=== PATIENT | female | born 2005 | race Caucasian/White ===

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

== ENCOUNTER 2025-10-23 11:34 | Emergency (ER) | payer BC, SELFPAY ==
[2025-10-23 11:35] VITALS: BP 129/59; PULSE 156; RESP 16; TEMP 36.7; O2SAT 100; BMI 27.0
--- NOTE | 2025-10-23 12:07 | ED.VIS.GI ---
HPI HPI - GI History of Present Illness Chief Complaint: Nausea/Vomiting/Diarrhea Informant: patient and parent Abdominal Pain/Flank Pain Onset: Today and Yesterday Context: Gradual Onset Timing: Continuous Quality: Aching Location: Diffuse Current Severity: Mild Maximum Severity: Mild Worsened by: Nothing Relieved by: Nothing Nausea/Vomiting/Emesis GI Symptom: Positive for Nausea and Vomiting Onset: Today and Yesterday Severity: Moderate Diarrhea/Melena/Hematochezia GI Symptom: Positive for Diarrhea Onset: Today and Yesterday Stool Quality: Positive for Watery Severity: Moderate Associated Symptoms Associated Symptoms: Negative for Dysuria, Frequency, Hematuria or Urgency Narrative Narrative: Healthy 20-year-old female. No prior abdominal surgeries. Yesterday started getting nausea, vomiting diarrhea. No exposure. Diffuse abdominal discomfort not localize any specific area. No dysuria no fever. No melena. Last menstrual period was about 3 weeks ago. Prior similar symptoms: No Recent Illness/Hospitalization: No PFSH PFSH Medical History no medical history no medical history Home Medications ?Medication ?Instructions ?Recorded ?Last Taken ?Type ondansetron 4 mg disintegrating 4 mg PO Q6H PRN nausea and 10/23/25 Unknown Rx tablet vomiting #10 tabs Allergy/AdvReac Type Severity Reaction Status Date / Time diphenhydramine (From Allergy Other Verified 10/23/25 11:38 Benadryl) Social History Smoking Status: Never smoker ROS ROS ED ROS Narrative Nausea, vomiting, diarrhea and abdominal discomfort. Constitutional Constitutional ED: Denies chills or fever(s) ENT ENT ED: Denies ear pain Cardiovascular Cardiovascular: Denies chest pain Respiratory/Chest Respiratory/Chest: Denies cough or dyspnea Gastrointestinal Gastrointestinal: Reports abdominal pain, diarrhea, nausea and vomiting; Denies constipation or melena Genitourinary Genitourinary ED: Denies dysuria or hematuria Musculoskeletal Musculoskeletal: Denies arthralgias or back pain Integumentary Denies abscess Psychiatric Psychiatric: Denies anxiety Endocrine Endocrinology: Denies polydipsia Hematologic/Lymphatic Hematologic/Lymphatic: Denies easy bleeding Allergic/Immunologic Allergic/Immunologic ED: Denies mouth swelling, tongue swelling or urticaria EXAM Physical Exam Narrative Exam Narrative: Well-appearing 20-year-old female vital signs are stable and she is tachycardic 156. She does not look septic. Mildly dehydrated. H EENT exam pupils round react light. Mildly dry mucous membranes. Neck nontender no lymphadenopathy. Back nontender. Lungs clear to auscultation bilaterally. Heart tachycardic 140 no murmur. Chest wall ribs nontender. Abdomen soft nondistended normal bowel sounds without peritoneal signs. There is no localizing tenderness about the right upper or right lower quadrant unremarkable. No hernia no mass. No distention. Moving all 4 extremities. Nontender no edema normal strength. Neurologically she is awake alert. Answering questions following commands. Const Vital Signs: 10/23/25 11:35 Temperature 98.1 F Temperature Source Oral Pulse Rate 156 H Respiratory Rate 16 Blood Pressure 129/59 H Blood Pressure Mean 82 Pulse Ox 100 Oxygen Delivery Method Room Air MDM MDM MDM Narrative Medical decision making narrative: 20-year-old female suspect viral gastroenteritis. IV fluids. Toradol for discomfort. Screening labs. At this time I do not think this is appendicitis. No definitive bowel obstruction. I do not think she needs image. Repeat exam patient doing well around 1:50 PM. Clinically feels and looks much better she is smiling. Repeat abdominal exam benign no right lower quadrant tenderness. No right upper quadrant tenderness. She is nondistended. I went over her labs with her and her family. She does not need any imaging. Clinically I feel this is viral gastroenteritis. Exam and labs are consistent with that. She will be discharged home fluids and rest. Zofran as needed. Return if worse follow-up if not improving. They are comfortable with the plan. History & Record Review Discussion w/independent historian: Patient and Family Additional record(s) reviewed:: No prior records Lab Data Attestation: I reviewed the patient's lab results. Lab results narrative: CBC shows a white count 13.8 H&H of 16.8 and 47. Platelets 357. Electrolytes show a gap of 14. BUN and creatinine 20 and 0.8. Glucose 129. Liver enzymes are normal. Lipase of 26 and normal. Serum test negative. Labs: Laboratory Results - last 24 hr 10/23/25 12:26 WBC 13.8 H RBC 5.54 H Hgb 16.8 H Hct 47.8 H MCV 86.3 MCH 30.3 MCHC 35.1 RDW Std Deviation 38.8 RDW Coeff of Manuel 12.4 Plt Count 357 MPV 10.0 Immature Gran % (Auto) 0.400 Neut % (Auto) 95.2 H Lymph % (Auto) 1.7 L Parmer % (Auto) 2.6 Eos % (Auto) 0.0 Baso % (Auto) 0.1 Absolute Neuts (auto) 13.1 H Absolute Lymphs (auto) 0.24 L Nucleated RBC % 0 Sodium 139 Potassium 4.1 Chloride 104 Carbon Dioxide 21.5 Anion Gap 14 BUN 20 H Creatinine 0.84 Estim Creat Clear Calc 103.55 Est GFR (MDRD) Non-Af 101 BUN/Creatinine Ratio 23.7 H Glucose 129 H Calcium 9.8 Total Bilirubin 0.54 AST 22 ALT 15 Alkaline Phosphatase 73 Total Protein 8.3 Albumin 4.6 Globulin 3.7 Albumin/Globulin Ratio 1.2 Lipase 26 Serum , Qual NEGATIVE Discharge Plan Triage Chief Complaint: Nausea/Vomiting/Diarrhea ED Provider: Philippe Gallagher Dx/Rx/DC Orders Clinical Impression: Viral gastroenteritis, Nausea, vomiting and diarrhea, Acute dehydration Instructions: ED Gastroenteritis, Viral (Adult) Prescriptions: New ondansetron 4 mg tablet,disintegrating 4 mg PO Q6H PRN (Reason: nausea and vomiting) Qty: 10 0RF Primary Care Provider: Concepcion Mccullough Referrals: Concepicon Mccullough MD [Primary Care Provider, Pediatrics] - 3-5 Days if not improving Activity Restrictions/Additional Instructions: Plenty of fluids and rest. Water, 7-Up and Gatorade. Increase diet slowly as tolerated. Zofran as needed for nausea. You may swallow or let dissolve under your tongue. Follow-up with your primary care provider if not improving or return to the emergency department if feeling worse. Tylenol and Motrin for any pain. Print Language: Portuguese Disposition Disposition: Home, Self Care
[2025-10-23] MEDS: Ketorolac 30 MG/ML Syringe IV (12:23)
[2025-10-23] MEDS: 0.9% Normal Saline (1000mL) 1,000 ML 1000 ML IV (12:25)
--- OUTSIDE RECORDS SUMMARY | 2025-10-23 12:26 | XMS RPT_ITS | CCD ---
Author Organization [facility] Care Team Providers Care Assistant Manager [employer] Name Role Phone Sadia KAPOOR, Renard Primary Care Provider Renard Mccullough Primary Care Unavailable Cassie, Jax Attending Unavailable [place], Jax Referring Unavailable Sadia, Renard Primary Care Unavailable [place], Jax Attending Unavailable [place], Jax Referring Unavailable Cassie, Jax Attending Unavailable Cassie, Jax Referring Unavailable Sadia, Renard Primary Care Unavailable Renard Mccullough MD Primary Care Provider SADIA, RENARD Primary Care Unavailable ROX HAMMOND Attending Unavailable SADIA, RENARD Attending Unavailable SADIA, RENARD Primary Care Unavailable Allergies Allergy Classification Reported Allergen(s) Allergy Type Date of Onset Reaction(s) Facility (13 sources) Benadryl Allergy Decongestant; Translations: [BENADRYL ALLERGY DECONGESTANT] Drug Intolerance 5 Mental Status Change [facility] Work Phone: Medications Current Medications Medication Drug Class(es) Dates Sig (Normalized) Sig (Original) drospirenone / Ethinyl Estradiol (9 sources) Progestin, Estrogen Start: 11-25-2024 End: 10-27-2025 take 1 tablet by mouth once daily Drospirenone-Ethi nyl Estradiol (REBECA, 28,) 3-0.02 mg per tablet Indications: Acne vulgaris Take 1 tablet by mouth once daily. 84 tablet 3 11/25/2024 10/27/2025 Active Start: 11-20-2024 End: 11-25-2024 take 1 tablet by mouth once daily Drospirenone-Ethinyl Estradiol (REBECA, 28,) 3-0.02 mg per tablet Indications: Acne vulgaris , Encounter for BCP ( control pills) initial prescription Take 1 tablet by mouth once daily. 28 tablet 11/20/2024 11/25/2024 Discontinued Start: 11-20-2024 End: 10-22-2025 take 1 tablet by mouth once daily Drospirenone-Ethinyl Estradiol (REBECA, 28,) 3-0.02 mg per tablet Indications: Acne vulgaris , Encounter for BCP ( control pills) initial prescription Take 1 tablet by mouth once daily. 28 tablet 11/20/2024 10/22/2025 Active Start: 09-13-2023 End: 11-20-2024 take 1 tablet by mouth once daily Drospirenone-Ethinyl Estradiol (REBECA, 28,) 3-0.02 mg per tablet Indications: Acne vulgaris , Encounter for BCP ( control pills) initial prescription Take 1 tablet by mouth once daily. 84 tablet 3 09/13/2023 11/20/2024 Discontinued Start: 09-13-2023 End: 08-14-2024 take 1 tablet by mouth once daily Drospirenone-Ethinyl Estradiol (REBECA, 28,) 3-0.02 mg per tablet Indications: Acne vulgaris , Encounter for BCP ( control pills) initial prescription Take 1 tablet by mouth once daily. 84 tablet 3 09/13/2023 08/14/2024 Active Start: 05-02-2023 End: 04-02-2024 take 1 tablet by mouth once daily Drospirenone-Ethinyl Estradiol (REBECA, 28,) 3-0.02 mg per tablet Indications: Acne vulgaris , Encounter for BCP ( control pills) initial prescription Take 1 tablet by mouth once daily. 84 tablet 3 05/02/2023 04/02/2024 Active Comment on above: Take 1 tablet by riley once daily. metroNIDAZOLE 7.5 mg/ml topical cream (12 sources) Nitroimidazole Antimicrobial Start: 02-04-2024 End: 06-13-2024 metroNIDAZOLE 0.75 % cream Indications: Perioral dermatitis Apply to affected area once daily. 45 g 2 06/13/2024 Active Start: 02-04-2024 End: 02-04-2024 take 60 g by mouth once daily metroNIDAZOLE 1 % cream Indications: Perioral dermatitis Apply to affected area once daily. Use at rash around mouth and near nostrils 60 g 1 02/04/2024 02/04/2024 Discontinued Start: 08-04-2022 take 60 g by mouth once daily metroNIDAZOLE 1 % cream Indications: Perioral dermatitis Apply to affected area once daily. Use at rash around mouth and near nostrils 60 g 1 08/04/2022 Active Start: 03-25-2021 End: 05-30-2022 metroNIDAZOLE 0.75 % cream Indications: Perioral dermatitis Apply to affected area twice daily. 45 g 1 03/25/2021 05/30/2022 Discontinued Start: 03-25-2021 End: 05-30-2022 take 60 g by mouth once daily metroNIDAZOLE 1 % cream Indications: Perioral dermatitis Apply to affected area once daily. Use at rash around mouth and near nostrils 60 g 1 03/25/2021 05/30/2022 Discontinued Comment on above: Apply to affected ar ea once daily. Use at rash around mouth and near nostrils Apply to affected ar ea twice daily. Apply to affected ar ea once daily. predniSONE 20 mg oral tablet (1 source) Start: 05-30-20 End: 06-04-20 take 3 tablets by mouth once daily predniSONE (DELTASONE) 20 mg tablet Take 3 tablets by mouth once daily for 5 days. 15 tablet 0 05/30/2022 06/04/2022 Active Comment on above: Take 3 tablets by mo [facility] once daily for 5 days. spironolactone 100 mg oral tablet (8 sources) Aldosterone Antagonist take 1 tablet by mouth once daily spironolactone (ALDACTONE) 100 mg tablet Take 100 mg by mouth once daily. Active Comment on above: Take 100 mg by mouth once daily. Completed/Discontinued Medications Medication Drug Class(es) Dates Sig (Normalized) Sig (Original) Cetirizine (5 sources) Histamine-1 Receptor Antagonist End: 05-02-2023 CETIRIZINE HCL (ZYRTEC ORAL) Take by mouth once daily as needed. 0 05/02/2023 Discontinued CETIRIZINE HCL ( ZYRTEC ORAL) Take by mouth once daily as needed. 0 Active Comment on above: Take by mouth once d aily as needed. clindamycin 0.01 mg/mg topical gel (3 sources) Lincosamide Antibacterial clindamycin (CLEOCIN-T) 1 % gel Apply to affected area twice daily. 0 Active Comment on above: Apply to affected ar ea twice daily. ISOtretinoin 30 mg oral capsule (2 sources) Retinoid End: 06-13-20 24 take 1 capsule by mouth twice daily ISOtretinoin (CLARAVIS) 30 mg capsule Take 30 mg by mouth two times a day. 0 06/13/2024 Discontinued Comment on above: Take 30 mg by mouth two times a day. 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 Use inside nostrils 60 g 0 03/25/2021 05/30/2022 Discontinued Comment on above: Apply 1 application to affected area three times daily. Use inside nostrils tazarotene 0.45 mg/ml topical lotion (3 sources) Retinoid Start: 04-19-20 23 ARAZLO 0.045 % lotn Problems Active Problems Problem Classification Problem Date Documented Da te Episodic/Chronic Contraceptive and procreative management (1 source) Oral contraception; Translations: [Encounter for surveillance of contraceptive pills] 11-25-2024 Episodic Immunizations and screening for infectious disease (4 sources) Patient encounter status; Translations: [Encounter for immunization] Episodic Other bone disease and musculoskeletal deformities (12 sources) Adolescent idiopathic scoliosis; Translations: [Adolescent idiopathic scoliosis, site unspecified] Onset: 05-07-2018 05-07-2018 Chronic Other inflammatory condition of skin (15 sources) Perioral dermatitis; Translations: [Perioral dermatitis] Onset: 09-14-2016 09-14-2016 Chronic Other nervous system disorders (1 source) Hyperesthesia; Translations: [Hyperesthesia] Episodic Other skin disorders (1 source) Eruption; Translations: [Rash and other nonspecific skin eruption] Episodic Other skin disorders (4 sources) Acne vulgaris; Translations: [Acne vulgaris] Episodic Other skin disorders (1 source) Acne vulgaris; Translations: [Acne vulgaris] Onset: 05-23-2024 Episodic Other upper respiratory infections (2 sources) Sore throat symptom; Translations: [Acute pharyngitis, unspecified] 06-22-2023 Episodic Past or Other Problems Problem Classification Problem Date Documented Da te Episodic/Chronic Other acquired deformities (12 sources) Lumbar spondylolisthesis; Translations: [Spondylolisthesis , lumbar region] Onset: 05-16-2018 05-16-2018 Episodic Spondylosis; intervertebral disc disorders; other back problems (5 sources) Acute back pain with sciatica; Translations: [Lumbago with sciatica, right side] Onset: 06-26-2018 Resolved: 06-09-2022 06-26-2018 Episodic Sprains and strains (12 sources) Rupture of anterior cruciate ligament of left knee; Translations: [Sprain of anterior cruciate ligament of left knee, subsequent encounter] Onset: 06-09-2022 Episodic Results Test Name Value Interpretation Reference Range Facil ity CNOVon 11-25-2024 CNOV Office Visit (OBGYWM) ---- HAILEE GARCIA ([id number]) 5 F Date Time Provider Department 11/25/24 1:30 PM ROX HAMMOND OBPALWGeetha During your visit today, we recorded the following information about you: Blood pressure Weight Last Period 108/60 70.9 kg 11/19/24 Rox Hammond APRN.ADVERTISING SALES AGENT 11/25/2024 1:54 PM Signed This 19 year old female was started on BCPs and is here for follow-up. She no complaints. Menses are normal and regular. Denies abdominal pain, chest pain or headache. No pain or swelling in the legs. No other neurologic or pulmonary symptoms. Patient's last menstrual period was 11/19/2024. Menstruation / History: No intermenstrual bleeding, spotting or discharge. Interval HX: no change. Last 1 Encounter BP Readings: Date: BP: 06/13/2024 110/60 EXAMINATION: Not Done ASSESSMENT/PLAN: Doing well on current BCP ORDERS: Office Visit on 11/25/24 Drospirenone-Ethiny l Estradiol (Vandana QUILES,) 3-0.02 mg per tablet DIAGNOSIS: (Z30.41) Encounter for surveillance of contraceptive pills (primary encounter diagnosis) (L70.0) Acne vulgaris RTC: 1 year for annual exam Rox Hammond APRN.ROHIT Medical Decision Making: Problems: Low: Stable chronic illness Risk: Moderate: Drug management Medical Decision Making Level: 3 - Low Allergies As of Date: 11/25/2024 Noted Allergy Reaction BENADRYL ALLERGY DECONGESTANT 09/27/2015 1 - Mental Status Change Comments: hyperness, night terror Date Reviewed: 11/25/2024 Reviewed by: Tanisha Connell LPN - Fully Assessed Reason for Visit: Contraception [26] Primary Visit Diagnosis:Encounter for surveillance of contraceptive pills [Z30.41] Other Visit Diagnosis:Acne vulgaris [L70.0] Order(s):Drospireno ne-Ethinyl Estradiol (REBECA, 28,) 3-0.02 mg per tabletTake 1 tablet by mouth once daily.Disp: 84 tabletRfl: 3 Prescriptions as of 11/25/2024 - Drospirenone-Ethiny l Estradiol (REBECA 28,) 3-0.02 mg per tablet Take 1 tablet by mouth once daily. - metroNIDAZOLE 0.75 % cream Apply to affected area once daily. - spironolactone (ALDACTONE) 100 mg tablet Take 100 mg by mouth once daily. Problem List As Of Date 11/25/2024 Noted Resolved Perioral dermatitis [L71.0] 09/14/2016 Adolescent idiopathic scoliosis [M41.129] 05/07/2018 Spondylolisthesis at L4-L5 level [M43.16] 05/16/2018 Acute right-sided low back pain with right-side*06/26/20 18 06/09/2022 Left ACL tear [S83.512A] 06/09/2022 Prescriptions ordered this encounter Disp Refills Start End DROSPIRENONE 3 MG-ETHINYL ESTRADIOL * 84 t* 3 11/25/2024 10/27/2025 Route: ORAL Sig: Take 1 tablet by mouth once daily. Medications Discontinued During This Encounter Prescriptions - Drospirenone-Ethiny l Estradiol (REBECA, 28,) 3-0.02 mg per tablet (Discontinued) Take 1 tablet by mouth once daily. Encounter Status:Closed by ROX HAMMOND on 11/25/24 [facility] Office Visit (PEDSWS) ---- HAILEE GARCIA ([id number]) 5 F Date Time Provider Department 06/13/24 10:30 AM RENARD MCCULLOUGH During your visit today, we recorded the following information about you: Temperature Pulse Blood pressure Weight 97.2 degrees 88/minute 110/60 67.4 kg Last Period Head Circumference 06/10/24 163.2cm Renard Mccullough MD 06/13/2024 12:54 PM Signed WELL VISIT PEDIATRIC 18+ YRS OLD Hailee is a 18 year old who presents today for well exam. SUBJECTIVE CONCERNS: Vaccines HISTORY ACTIVE PROBLEM LIST Left Acl Tear - 06/09/2022 Comment: S/p surgical repair fall '21 Spondylolisthesis At L4-L5 Level - 05/16/2018 Adolescent Idiopathic Scoliosis - 05/07/2018 Comment: Perioral Dermatitis - 09/14/2016 PAST MEDICAL HISTORY 07/20/2010: PMH - PAST MEDICAL HISTORY OF Comment: normal color vision 07/2021: Torn ACL-left PAST SURGICAL HISTORY 08/2021: PAST SURGICAL HISTORY OF Comment: Repair torn ACL-left ALLERGIES Allergen Reactions Benadryl Allergy De* Mental Status Change hyperness, night terror Medications: metroNIDAZOLE 0.75 % cream Apply to affected area once daily. Drospirenone-Ethiny l Estradiol (REBECA, Vandana,) 3-0.02 mg per tablet Take 1 tablet by mouth once daily. spironolactone (ALDACTONE) 100 mg tablet Take 100 mg by mouth once daily. ISOtretinoin (CLARAVIS) 30 mg capsule Take 30 mg by mouth two times a day. (Patient not taking: Reported on 06/13/2024) FAMILY HISTORY Problem Relation Age of Onset Diabetes Maternal Grandmother Cancer Other paternal side Social History Social History Narrative Not on file Smoking Exposure: Do you spend a significant amount of time with anyone who smokes? No School: Entering College. No academic or school related concerns No behavioral concerns Any concerns regarding peer interactions? No Recreational Screen Time totaling more than 2 hours of screen time per day. Physical Activity: more than 1 hour of physical activity per day Fainting, dizziness, significant shortness of breath or chest pain with sports or exercise: No History of concussion in the last year: No Safety: 06/11/2023 Pediatric SDOH - Response to gun questions Are there any guns kept in or around your home or where your child spends time? No Reviewed seat belts, bike helmets, and smoke detectors Diet: -Diet is well balanced and appropriate for age -Fruits are eaten with most meals -Vegetables are not eaten routinely -Drinks water daily Elimination: no concerns, normal size and consistency Dental: dental care current Sleep: -no sleep concerns Vision: Wears contact lenses and Vision screening completed by eye doctor Hearing: No hearing concerns Growth: No growth concerns Gynecological history: LMP: 06/10/2024 Cycles are regular and last 4 days. Dysmenorrhea: none Heavy periods: no Screening tools reviewed and discussed with patient/family-PHQ- 9 and Social Determinants of Health. Please see Patient Entered Data. SDOH: Food Insecurity: Patient Declined (06/13/2024) Hunger Vital Sign Worried About Running Out of Food in the Last Year: Patient declined Ran Out of Food in the Last Year: Patient declined Financial Resource Strain: Patient Declined (06/13/2024) Overall Financial Resource Strain (CARDIA) Difficulty of Paying Living Expenses: Patient declined Transportation Needs: No Transportation Needs (06/13/2024) PRAPARE - Transportation Lack of Transportation (Medical): No Lack of Transportation (Non-Medical): No Housing Stability: Low Risk (06/13/2024) Housing Stability Vital Sign Unable to Pay for Housing in the Last Year: No Number of Places Lived in the Last Year: 1 Unstable Housing in the Last Year: No Discussed SDOH results with patient/family. SDOH needs identified: no concerns identified OBJECTIVE Physical Exam: BP 110/60 Pulse 88 Temp 36.2 ?C (97.2 ?F) (Temporal Artery) Wt 67.4 kg (148 lb 9.6 oz) LMP 06/10/2024 (Exact Date) HC 163.2 cm Blood pressure %denzel are not available for patients who are 18 years or older. Blood pressure %denzel are not available for patients who are 18 years or older. No height and weight on file for this encounter. Last BMI: Wt: 61.3 kg (135 lb 3.2 oz) (69%, Z= 0.48)* BMI: 22.94 kg/(m2) Last 4 Encounter Wt Readings: Date: Wt: 06/13/2024 67.4 kg (148 lb 9.6 oz) (81%, Z= 0.88)* 09/13/2023 61.3 kg (135 lb 3.2 oz) (69%, Z= 0.48)* 06/22/2023 60.4 kg (133 lb 3.2 oz) (67%, Z= 0.43)* 06/11/2023 61.6 kg (135 lb 12.8 oz) (70%, Z= 0.53)* Last 4 Encounter Ht Readings: Date: Ht: 06/11/2023 163.5 cm (5' 4.37) (52%, Z= 0.06)* 06/09/2022 163.6 cm (5' 4.41) (54%, Z= 0.11)* 06/08/2021 163.5 cm (5' 4.37) (56%, Z= 0.15)* 05/19/2020 162.6 cm (5' 4) (55%, Z= 0.13)* General: Well developed, No acute distress Head: normocephalic Eyes: conjunctivae/cornea s clear Ears (more content not included)... Normal [facility] SCREENING TEST OF VISUAL ACU ITY, QUANTon 06-13-2024 Interpretation and review of laboratory results Normal [facility] SCREENING incomlpete Incomplete - Complete [facility] Patient currently sees ophthalmology for vision concerns. Performed by Phu Sheridan RN [facility] ,Urineon 05-06-2024 Beta HCG ( test) Ql (U) Negative Normal [facility] Comment on above: Result Comment: Very dilute urine specimens, as indicated by a low specific gravity, may not contain exhibit display representative levels of hCG. If is still suspected, a first morning urine specimen should be collected 48 hours later and tested. Performed By: #### L 400.0620 #### [facility] [address] [place], [address] Laboratory - Chemistry and C hemistry - challengeOrdered By: Jax Matthews on 10-10-2023 HCG ( test) Ql (U) Negative [facility] Comment on above: Very dilute urine sp ecimens, as indicated by a low specificgravity, may not contain exhibit display representative levels of hCG. If is still suspected, a first morning urinespecimen should be collected 48 hours later and tested. ,Urineon 10-10-2023 Beta HCG ( test) Ql (U) Negative Normal [facility] Comment on above: Result Comment: Very dilute urine specimens, as indicated by a low specific gravity, may not contain exhibit display representative levels of hCG. If is still suspected, a first morning urine specimen should be collected 48 hours later and tested. Performed By: #### L 400.7600 #### [facility] [address] [place], [place], [id number] LDL, Directon 06-24-2023 Cholesterol in LDL [Mass/Vol] 93 mg/dL Normal 0-109 [facility] Comment on above: Order Comment: V Result Comment: Perf ormed at: - [facility] [address] [id number] Telecommunications Analyst: Star Greenwood PhD, Phone: [phone] Performed By: #### L 500.4100, L501.4100, L3300.4490, L501.4405 #### [facility] [address] [place], [place], [id number] COMMENT TNP Normal . [facility] Comment on above: Order Comment: V Performed By: #### L 500.4100, L501.4100, L3300.4490, L501.4405 #### [facility] [address] [place], [place], [id number] AST(SGOT)on 06-22-2023 AST [Catalytic activity/Vol] 21 U/L Normal 15-37 [facility] Comment on above: Performed By: #### L 500.4100, L501.4100, L3300.4490, L501.4405 #### [facility] [address] [place], [address] Alanine Aminotransferas (SGP T)on 06-22-2023 ALT [Catalytic activity/Vol] 26 U/L Normal [facility] Comment on above: Performed By: #### L 500.4100, L501.4100, L3300.4490, L501.4405 #### [facility] [address] [place], [place], [address] Basophil percentageOrdered B y: Jax Matthews on 06-22-2023 Cholesterol [Mass/Vol] 177 mg/dL <200 [facility] Comment on above: <200 mg/dL Desirable 200-240 mg/dL Borderline >240 mg/dL High Risk Triglyceride [Mass/Vol] 64 mg/dL <199 [facility] Comment on above: The drugs N-Acetylcy steine and Metamizole may falsely depress this assay.Serum Triglycerides Reference Interval Normal <150 mg/dL Borderline high 150 - 199 mg/dL High 200 - 499 mg/dL Very High > or = 500 mg/dL Cholesterol in LDL Direct as say [Mass/Vol]Ordered By: Jax Matthews on 06-22-2023 Cholesterol in LDL [Mass/Vol] 93 mg/dL 0-109 [facility] Comment on above: Performed at: [place] [id number] Director: Star Greenwood PhD, Phone: [phone] Laboratory - Chemistry and C hemistry - challengeOrdered By: Jax Matthews on 06-22-2023 ALT [Catalytic activity/Vol] 26 U/L [facility] - Miscellaneous t estsOrdered By: Jax Matthews on 06-22-2023 Service comment (Unsp spec) [Interp] TNP [facility] Comment on above: Test not performed Lipid Profileon 06-22-2023 Cholesterol [Mass/Vol] 177 mg/dL Normal 200 [facility] Comment on above: Result Comment: <200 mg/dL Desirable 200-240 mg/dL Borderline >240 mg/dL High Risk Performed By: #### L 500.4100, L501.4100, L3300.4490, L501.4405 #### [facility] [address] [place], [address] Cholesterol in HDL [Mass/Vol] 90 mg/dL Normal [facility] Comment on above: Result Comment: The drugs N-Acetylcysteine and Metamizole may falsely depress this assay. Reference Range HDL <40 mg/dL Low HDL Cholesterol HDL >or= 60 mg/dL High HDL Cholesterol Performed By: #### L 500.4100, L501.4100, L3300.4490, L501.4405 #### [facility] [address] [place], [address] Cholesterol in LDL [Mass/Vol] 74 mg/dL Normal 0-130 [facility] Comment on above: Performed By: #### L 500.4100, L501.4100, L3300.4490, L501.4405 #### [facility] [address] [place], [address] Cholesterol in VLDL [Mass/Vol] 13 mg/dL Normal 5-40 [facility] Comment on above: Performed By: #### L 500.4100, L501.4100, L3300.4490, L501.4405 #### [facility] [address] [place], [address] Triglyceride [Mass/Vol] 64 mg/dL Normal [facility] Comment on above: Result Comment: The drugs N-Acetylcysteine and Metamizole may falsely depress this assay. Serum Triglycerides Reference Interval Normal <150 mg/dL Borderline high 150 - 199 mg/dL High 200 - 499 mg/dL Very High > or = 500 mg/dL Performed By: #### L 500.4100, L501.4100, L3300.4490, L501.4405 #### [facility] [address] [place], [address] STREP A MOLECULAR (POC)on Procedural Control Valid [facility] Strep A (POCT) Negative Negative [facility] Serum or plasma cholesterol in HDL measurement (mass/volume)Ordered By: Jax Matthews on 06-22-2023 Cholesterol in HDL [Mass/Vol] 90 mg/dL >40 [facility] Comment on above: The drugs N-Acetylcy steine and Metamizole may falsely depress this assay. Reference Range HDL <40 mg/dL Low HDL Cholesterol HDL >or= 60 mg/dL High HDL Cholesterol Serum or plasma cholesterol in VLDL measurement (mass/volume)Ordered By: Jax Matthews on 06-22-2023 Cholesterol in VLDL [Mass/Vol] 13 mg/dL 5-40 [facility] Serum or plasma low density lipoprotein (LDL) cholesterol measurement (mass/volume)Ordered By: Jax Matthews on 06-22-2023 Cholesterol in LDL [Mass/Vol] 74 mg/dL 0-130 [facility] Thin prep Papanicolaou smear with manual screeningOrdered By: Jax Matthews on 06-22-2023 Thin prep Papanicolaou smear with manual screening 21 U/L 15-37 [facility] STREP A MOLECULAR (POC)on Procedural Control Valid [facility] Strep A (POCT) Negative Negative [facility] Vital Signs Date Time Vital Sign Value Performing Clinician Facility 11-25-2024 13:32-0500 Body weight 70.94 kg Rox [place] TRANSPORTATION CONSULTANT.ADVERTISING SALES AGENT Work Phone: [facility] 11-25-2024 13:32-0500 Diastolic blood pressure 60 mm[Hg] Rox Stephany TRANSPORTATION CONSULTANT.ADVERTISING SALES AGENT Work Phone: [facility] 11-25-2024 13:32-0500 Systolic blood pressure 108 mm[Hg] Rox Stephany TRANSPORTATION CONSULTANT.ADVERTISING SALES AGENT Work Phone: [facility] 06-13-2024 10:38-0400 Body temperature 97.2 [degF] Renard Mccullough MD Work Phone: [facility] 06-13-2024 10:38-0400 Body weight 67.41 kg Renard Mccullough MD Work Phone: [facility] 06-13-2024 10:38-0400 Diastolic blood pressure 60 mm[Hg] Renard Mccullough MD Work Phone: [facility] 06-13-2024 10:38-0400 Head Occipital-frontal circumference 163.2 cm Renard Mccullough MD Work Phone: [facility] 06-13-2024 10:38-0400 Heart rate 88 /min Renard Mccullough MD Work Phone: [facility] 06-13-2024 10:38-0400 Systolic blood pressure 110 mm[Hg] Renard Mccullough MD Work Phone: [facility] 06-22-2023 12:48-0400 Body temperature 97.81 [degF] Subhash Stephens TRANSPORTATION CONSULTANT.ADVERTISING SALES AGENT Work Phone: [facility] 06-22-2023 12:48-0400 Body weight 60.42 kg Subhash Stephens TRANSPORTATION CONSULTANT.ADVERTISING SALES AGENT Work Phone: [facility] 06-22-2023 12:48-0400 Diastolic blood pressure 88 mm[Hg] Subhash Stephens TRANSPORTATION CONSULTANT.ADVERTISING SALES AGENT Work Phone: [facility] 06-22-2023 12:48-0400 Heart rate 95 /min Subhash Stephens TRANSPORTATION CONSULTANT.ADVERTISING SALES AGENT Work Phone: [facility] 06-22-2023 12:48-0400 Respiratory rate 21 /min Subhash Stephens TRANSPORTATION CONSULTANT.ADVERTISING SALES AGENT Work Phone: [facility] 06-22-2023 12:48-0400 SaO2% (BldA) [Mass fraction] 99 % Subhash Stephens TRANSPORTATION CONSULTANT.ADVERTISING SALES AGENT Work Phone: [facility] 06-22-2023 12:48-0400 Systolic blood pressure 120 mm[Hg] Subhash Stephens TRANSPORTATION CONSULTANT.ADVERTISING SALES AGENT Work Phone: [facility] 06-11-2023 13:36-0400 Body height 163.5 cm Renard Mccullough MD Work Phone: [facility] 06-11-2023 13:36-0400 Body mass index (BMI) [Percentile] Per age and sex 69.3 % Renard Mccullough MD Work Phone: [facility] 06-11-2023 13:36-0400 Body temperature 98.71 [degF] Renard Mccullough MD Work Phone: [facility] 06-11-2023 13:36-0400 Body weight 61.6 kg Renard Mccullough MD Work Phone: [facility] 06-11-2023 13:36-0400 Diastolic blood pressure 70 mm[Hg] Renard Mccullough MD Work Phone: [facility] 06-11-2023 13:36-0400 Heart rate 96 /min Renard Mccullough MD Work Phone: [facility] 06-11-2023 13:36-0400 Respiratory rate 20 /min Renard Mccullough MD Work Phone: [facility] 06-11-2023 13:36-0400 Systolic blood pressure 118 mm[Hg] Renard Mccullough MD Work Phone: [facility] 05-02-2023 15:21-0400 Body weight 60.96 kg Nyasia Castaneda APRN.ADVERTISING SALES AGENT Work Phone: [facility] 05-02-2023 15:21-0400 Diastolic blood pressure 72 mm[Hg] Nyasia Castaneda APRN.ADVERTISING SALES AGENT Work Phone: [facility] 05-02-2023 15:21-0400 Systolic blood pressure 110 mm[Hg] Nyasia Castaneda APRN.ADVERTISING SALES AGENT Work Phone: [facility] 06-09-2022 08:43-0400 Body height 163.6 cm Renard Mccullough MD Work Phone: [facility] 06-09-2022 08:43-0400 Body mass index (BMI) [Percentile] Per age and sex 70.01 % Renard Mccullough MD Work Phone: [facility] 06-09-2022 08:43-0400 Body temperature 98.2 [degF] Renard Mccullough MD Work Phone: [facility] 06-09-2022 08:43-0400 Body weight 60.78 kg Renard Mccullough MD Work Phone: [facility] 06-09-2022 08:43-0400 Diastolic blood pressure 76 mm[Hg] Renard Mccullough MD Work Phone: [facility] 06-09-2022 08:43-0400 Heart rate 104 /min Renard Mccullough MD Work Phone: [facility] 06-09-2022 08:43-0400 Respiratory rate 20 /min Renard Mccullough MD Work Phone: [facility] 06-09-2022 08:43-0400 Systolic blood pressure 116 mm[Hg] Renard Mccullough MD Work Phone: [facility] 05-30-2022 16:36-0400 Body temperature 98.49 [degF] Kirsten Ely PA-C Work Phone: [facility] 05-30-2022 16:36-0400 Body weight 61.92 kg Kirsten Ely PA-C Work Phone: [facility] 05-30-2022 16:36-0400 Heart rate 76 /min Kirsten Ely PA-C Work Phone: [facility] 05-30-2022 16:36-0400 Respiratory rate 16 /min Kirsten Ely PA-C Work Phone: [facility] Encounters Encounter Date Encounter Type Care Provider Facility Start: 11-25-2024 End: 11-25-2024 ambulatory RENARD MCCULLOUGH Facility:[facility] Start: 11-25-2024 End: 11-25-2024 Patient encounter procedure Rox Hammond APRN.CNP Work Phone: OB/Gynecology Comment on above: Encounter for survei llance of contraceptive pills (Primary Dx); Acne vulgaris Start: 11-20-2024 End: 11-20-2024 Refill Rox [place] TRANSPORTATION CONSULTANT.ADVERTISING SALES AGENT Work Phone: OB/Gynecology Comment on above: Refill Request Start: 09-28-2024 End: 09-29-2024 Refill Rox Stephany TRANSPORTATION CONSULTANT.ADVERTISING SALES AGENT Work Phone: OB/Gynecology Comment on above: Refill Request Start: 06-13-2024 End: 06-13-2024 ambulatory RENARD SADIA Facility:[facility] Start: 06-13-2024 Encounter for routin e child health examination without abnormal findings RENARD MCCULLOUGH [facility] Start: 06-13-2024 End: 06-13-2024 Patient encounter procedure Renard Mccullough MD Work Phone: [facility] Comment on above: Encounter for routin e child health examination w/o abnormal findings (Primary Dx); Perioral dermatitis Start: 06-13-2024 End: 06-13-2024 Patient encounter status Renard Mccullough MD Work Phone: [facility] Start: 05-06-2024 End: 05-06-2024 ambulatory Jax Cassie Facility:[facility] Start: 02-04-2024 Refill Michael Rojo MD Work Phone: [facility] [place] [facility] Comment on above: Med Change Request Start: 10-10-2023 End: 10-10-2023 ambulatory [facility] Work Phone: Start: 10-10-2023 End: 10-10-2023 Patient encounter procedure [facility] Work Phone: Start: 10-10-2023 End: 10-10-2023 ambulatory [facility] Facility:[facility] Start: 06-22-2023 End: 06-22-2023 ambulatory [facility] Work Phone: Start: 06-22-2023 End: 06-22-2023 Patient encounter procedure [facility] Work Phone: Start: 06-22-2023 End: 06-22-2023 Patient encounter procedure Subhash Stephens TRANSPORTATION CONSULTANT.ADVERTISING SALES AGENT Work Phone: [facility] Comment on above: URI, acute (Primary Dx); Sore throat Start: 06-22-2023 End: 06-22-2023 ambulatory Renard Mccullough Facility:[facility] Start: 06-11-2023 End: 06-11-2023 Patient encounter procedure Renard Mccullough MD Work Phone: [facility] Comment on above: Encounter for routin e child health examination without abnormal findings (Primary Dx) Start: 06-11-2023 End: 06-11-2023 Patient encounter status Renard Mccullough MD Work Phone: [facility] Work Phone: Start: 05-02-2023 End: 05-02-2023 Patient encounter procedure Nyasia Castaneda APRN.ADVERTISING SALES AGENT Work Phone: OB/Gynecology Comment on above: Acne vulgaris (Prima ry Dx); Encounter for BCP ( control pills) initial prescription Start: 08-03-2022 Refill Renard weaver MD Work Phone: [facility] Comment on above: Refill Request Start: 07-25-2022 ambulatory Renard weaver MD Work Phone: [facility] Comment on above: Recommended sunscree n from 06/09/22 visit Start: 06-09-2022 End: 06-09-2022 Patient encounter procedure Renard Mccullough MD Work Phone: [facility] Comment on above: Encounter for routin e child health examination without abnormal findings (Primary Dx); Encounter for immunization; Rupture of anterior cruciate ligament of left knee, subsequent encounter Start: 06-09-2022 End: 06-09-2022 Patient encounter status Renard Mccullough MD Work Phone: [facility] Start: 05-30-2022 End: 05-30-2022 Patient encounter procedure Kirsten Ely PA-C Work Phone: [facility] Comment on above: Rash and nonspecific skin eruption (Primary Dx) Procedures Date Procedure Procedure Detail Performing Clinician Start: 06-13-2024 Screening test visua l acuity quantitative bilat Renard Mccullough MD Work Phone: Start: 06-13-2024 Adult depression scr eening assessment Rox Hammond TRANSPORTATION CONSULTANT.ADVERTISING SALES AGENT Work Phone: Start: 06-22-2023 STREP A MOLECULAR (POC) Subhash Stephens TRANSPORTATION CONSULTANT.ADVERTISING SALES AGENT Work Phone: Start: 06-11-2023 Adult depression scr eening assessment Renard Mccullough MD Work Phone: Start: 06-09-2022 Menacwy-tt conj vacc serogroups acwy for im use Renard Mccullough MD Work Phone: Start: 06-09-2022 Adult depression scr eening assessment Renard Mccullough MD Work Phone: Start: 05-30-2022 STREP A MOLECULAR (POC) Kirsten Ely PA-C Work Phone: Start: 06-08-2021 Adult depression scr eening assessment Kirsten Ely PA-C Work Phone: Plan of Treatment Date Care Activity Detail Author Start: 05-02-2028 Urine microalbumin profile [facility] Start: 11-30-2025 End: 11-30-2025 Patient encounter procedure 11/30/2025 11:30 AM EST Office Visit OB/Gynecology [address] [place] [address] Rox Hammond APRN.ADVERTISING SALES AGENT [address] [place] [address] Annual OB/Gynecology Comment on above: Annual Start: 06-13-2025 Anxiety Screening Anxiety Screening [facility] Start: 06-13-2025 Depression Screening Depression Scre ening [facility] Start: 11-25-2024 End: 11-25-2024 Patient encounter procedure 11/25/2024 1:30 PM EST Office Visit OB/Gynecology [address] [place] [address] Rox Hammond APRN.ADVERTISING SALES AGENT [address] [place] [address] refill ocp OB/Gynecology Comment on above: refill ocp Start: 07-13-2024 Covid-19 Vaccine ( season) Covid-19 Vaccine ( season) [facility] Start: 07-13-2024 Influenza vaccination Influenza Vacc ine (#1) [facility] Start: 06-11-2024 Adult depression screening assessment DEPRESSION SCREENING [facility] Start: 11-12-2023 Depression Assessment Depression Ass essment [facility] Start: 07-13-2023 Covid-19 Vaccine ( season) Covid-19 Vaccine () [facility] Start: 07-13-[address] [facility] Start: 2023 Anxiety Screening Anxiety Screening [facility] Start: 2023 Depression Screening Depression Scre ening [facility] Start: 2023 GC (Gonorrhea) Scree dale () GC (Gonorrhea) Screening () [facility] Start: 2023 Hepatitis C screening Hepatitis C Sc reening [facility] Start: 2023 HIV screening HIV Screening [facility] Start: 2023 Screening for Chlamy piper trachomatis Chlamydia Screening () [facility] Start: 06-09-2023 Adult depression screening assessment DEPRESSION SCREENING [facility] Start: 07-13-2022 Influenza vaccination INFLUENZA (#1) [facility] Start: 06-08-2022 Adult depression screening assessment DEPRESSION SCREENING [facility] Start: 2021 Meningococcal B Vacc ine: Consider Based On Risk (1 of 2 - Patient Seeks Protection) Meningococcal B Vaccine: Consider Based On Risk (1 of 2 - Patient Seeks Protection) [facility] Start: 2021 MENINGOCOCCAL B: Con rubber press tender based on risk (1 of 2 - Patient Seeks Protection) MENINGOCOCCAL B: Consider based on risk (1 of 2 - Patient Seeks Protection) [facility] Start: 2021 MENINGOCOCCAL CONJUG ATE (2 - 2-dose series) MENINGOCOCCAL CONJUGATE (2 - 2-dose series) [facility] Start: 2020 CHLAMYDIA SCREENING (<18) CHLAMYDIA SCREENING (<18) [facility] Start: 2020 GC (GONORRHEA) SCREE DALE (<18) GC (GONORRHEA) SCREENING (<18) [facility] Start: 2019 PEDS TO ADULT TRANSI TION ANNUAL ASSESSMENT PEDS TO ADULT TRANSITION ANNUAL ASSESSMENT [facility] Start: 2015 MENINGOCOCCAL B: Con rubber press tender based on risk (1 of 2 - Risk Bexsero 2-dose series) MENINGOCOCCAL B: Consider based on risk (1 of 2 - Risk Bexsero 2-dose series) [facility] Start: 01-06-2006 COVID-19 VACCINE (#1) COVID-19 VACCI NE (#1) [facility] Immunizations Immunization Date Immunization Notes Care Provider Darrel harrison 06-09-2022 meningococcal (MenACWY-TT) vaccine, quadrivalent (MENQUADFI) Renard Mccullough MD Work Phone: [facility] 05-19-2020 Human Papillomavirus 9-valent vaccine Kirsten ESCALERA-C Work Phone: [facility] 05-02-2018 Human Papillomavirus 9-valent vaccine Kirsten ESCALERA-C Work Phone: [facility] 05-02-2018 meningococcal polysaccharide (groups A, C, Y and W-135) diphtheria toxoid conjugate vaccine (MCV4P) Kirsten ESCALERA-C Work Phone: [facility] 05-02-2018 tetanus toxoid, redu lily diphtheria toxoid, and acellular pertussis vaccine, adsorbed Kirsten ESCALERA-C Work Phone: [facility] 07-21-2011 measles, mumps and rubella virus vaccine Kirsten Ely PA-C Work Phone: [facility] Work Phone: 07-21-2011 varicella virus vaccine Tl Ely PA-C Work Phone: [facility] Work Phone: 07-20-2010 diphtheria, tetanus toxoids and acellular pertussis vaccine Kirsten Ely PA-C Work Phone: [facility] Work Phone: 07-20-2010 influenza virus vacc ine, live, attenuated, for intranasal use Kirsten Ely PA-C Work Phone: [facility] Work Phone: 07-20-2010 poliovirus vaccine, inactivated Kirsten Ely PA-C Work Phone: [facility] Work Phone: 07-20-2010 influenza virus vacc ine, unspecified formulation Michael Rojo MD Work Phone: [facility] 07-21-2009 hepatitis A vaccine, unspecified formulation Kirsten Ely PA-C Work Phone: [facility] Work Phone: 09-11-2008 influenza virus vacc ine, live, attenuated, for intranasal use Kirsten Ely PA-C Work Phone: [facility] Work Phone: 10-23-2007 influenza virus vacc ine, unspecified formulation Kirsten Ely PA-C Work Phone: [facility] Work Phone: 11-08-2006 diphtheria, tetanus toxoids and acellular pertussis vaccine Kirsten Ely PA-C Work Phone: [facility] Work Phone: 11-08-2006 haemophilus influenz ae type b vaccine, HbOC conjugate Kirsten Ely PA-C Work Phone: [facility] Work Phone: 11-08-2006 hepatitis A vaccine, unspecified formulation Kirsten Ely PA-C Work Phone: [facility] Work Phone: 11-08-2006 influenza virus vacc ine, unspecified formulation Kirsten Ely PA-C Work Phone: [facility] Work Phone: 07-12-2006 measles, mumps and rubella virus vaccine Kirsten Rodriguezut PA-C Work Phone: [facility] Work Phone: 07-12-2006 pneumococcal conjuga te vaccine, 7 valent Kirsten Ely PA-C Work Phone: [facility] Work Phone: 07-12-2006 varicella virus vaccine Tl Rodriguezut PA-C Work Phone: [facility] Work Phone: 01-05-2006 DTaP-hepatitis B and poliovirus vaccine Kirsten Ely PA-C Work Phone: [facility] Work Phone: 01-05-2006 haemophilus influenz ae type b vaccine, HbOC conjugate Kirsten Ely PA-C Work Phone: [facility] Work Phone: 01-05-2006 pneumococcal conjuga te vaccine, 7 valent Kirsten Ely PA-C Work Phone: [facility] Work Phone: 2005 DTaP-hepatitis B and poliovirus vaccine Kirsten Rodriguezut PA-C Work Phone: [facility] Work Phone: 2005 haemophilus influenz ae type b vaccine, HbOC conjugate Kirsten Ely PA-C Work Phone: [facility] Work Phone: 2005 pneumococcal conjuga te vaccine, 7 valent Kirsten Ely PA-C Work Phone: [facility] Work Phone: 2005 DTaP-hepatitis B and poliovirus vaccine Kirsten Ely PA-C Work Phone: [facility] Work Phone: 2005 haemophilus influenz ae type b vaccine, HbOC conjugate Kirsten Ely PA-C Work Phone: [facility] Work Phone: 2005 pneumococcal conjuga te vaccine, 7 valent Kirsten Ely PA-C Work Phone: [facility] Work Phone: Payers Date Payer Category Payer Self-pay 2022 Unknown [id number] 2014 Unknown [employer] PPO OOS [id number] 2014-Present [phone] [address] [place] [address] PPO [id number] 2014 Unknown [id number] Unknown [id number] Unknown [id number] Unknown [id number] Social History Date Type Detail Facility Tobacco smoking status NHIS Never smoked tobacco [facility] Start: 05-30-2022 End: 06-13-2024 Alcohol intake Not Asked [facility] Start: 2005 Sex Assigned At Not on file [facility] Start: 2005 Sex Assigned At Female C [facility] Start: 05-30-2022 End: 06-09-2022 Exposure to SARS-CoV-2 (event) Not sure [facility] Start: 05-02-2023 End: 06-11-2023 History of Social function [facility] Start: 05-02-2023 End: 06-11-2023 Tobacco use panel [facility] How hard is it for y ou to pay for the very basics like food, housing, medical care, and heating Not very hard [facility] (I/We) worried wheth er (my/our) food would run out before (I/we) got money to buy more. Never true [facility] In the past 12 month s, has lack of transportation kept you from medical appointments or from getting medications? No [facility] In the past 12 month s, was there a time when you were not able to pay the mortgage or rent on time? No [facility] Start: 06-02-2022 Gender identity Identifies as female gender (finding) [facility] How often to you hav e a drink containing alcohol? Never [facility] Do you feel stress - tense, restless, nervous, or anxious, or unable to sleep at night because your mind is troubled all the time - these days [OSQ] Not at all [facility] Clinical Notes 06-26-2018 to 11-25-2024 Rox Hammond APRN.ADVERTISING SALES AGENT - 11/25/2024 1:28 PM ESTTelephone Encounter - Madeleine Ortega LPN - 11/20/2024 9:29 AM ESTTelephone Encounter - Madeleine Ortega LPN - 11/20/2024 9:29 AM EST Note Date & Type Note Facility 11-25-2024 Note HNO ID: [id number] Author: ROX HAMMOND APRN.ROHIT Service: ? Author Type: Nurse Practitioner Type: Progress Notes Filed: 11/25/2024 13:54 Note Text: This 19 year old female was started on BCPs and is here for follow-up. She no complaints. Menses are normal and regular. Denies abdominal pain, chest pain or headache. No pain or swelling in the legs. No other neurologic or pulmonary symptoms. Patient's last menstrual period was 11/19/2024. Menstruation / History: No intermenstrual bleeding, spotting or discharge. Interval HX: no change. Last 1 Encounter BP Readings: Date: BP: 06/13/2024 110/60 EXAMINATION: Not Done ASSESSMENT/PLAN: Doing well on current BCP ORDERS: Office Visit on 11/25/24 Drospirenone-Ethinyl Estradiol (REBECA, 28,) 3-0.02 mg per tablet DIAGNOSIS: (Z30.41) Encounter for surveillance of contraceptive pills (primary encounter diagnosis) (L70.0) Acne vulgaris RTC: 1 year for annual exam Rox Hammond APRN.CNP Medical Decision Making: Problems: Low: Stable chronic illness Risk: Moderate: Drug management Medical Decision Making Level: 3 - Low [facility] 11-25-2024 History of Presen t illness Narrative This 19 year old female was started on BCPs and is here for follow-up. She no complaints. Menses are normal and regular. Denies abdominal pain, chest pain or headache. No pain or swelling in the legs. No other neurologic or pulmonary symptoms. Patient's last menstrual period was 11/19/2024. Menstruation / History: No intermenstrual bleeding, spotting or discharge. Interval HX: no change. Last 1 Encounter BP Readings: Date: BP: 06/13/2024 110/60 EXAMINATION: Not Done ASSESSMENT/PLAN: Doing well on current BCP ORDERS: Office Visit on 11/25/24 Drospirenone-Ethinyl Estradiol (REBECA, 28,) 3-0.02 mg per tablet DIAGNOSIS: (Z30.41) Encounter for surveillance of contraceptive pills (primary encounter diagnosis) (L70.0) Acne vulgaris RTC: 1 year for annual exam Rox Hammond APRN.CNP Medical Decision Making: Problems: Low: Stable chronic illness Risk: Moderate: Drug management Medical Decision Making Level: 3 - Low documented in this encounter [facility] 11-20-2024 Telephone encount er Note Patient has yearly exam 11/25/2024. Called requesting refill of rebeca, only call if problem [facility] 11-20-2024 Miscellaneous Notes Formattin g of this note might be different from the original. Patient has yearly exam 11/25/2024. Called requesting refill of rebeca, only call if problem documented in this encounter [facility] 06-13-2024 Note HNO ID: [id number] Author: RENARD MCCULLOUGH MD Service: ? Author Type: Physician Type: Progress Notes Filed: 06/13/2024 12:54 Note Text: WELL VISIT PEDIATRIC 18+ YRS OLD Hailee is a 18 year old who presents today for well exam. SUBJECTIVE CONCERNS: Vaccines HISTORY ACTIVE PROBLEM LIST Left Acl Tear - 06/09/2022 Comment: S/p surgical repair fall '21 Spondylolisthesis At L4-L5 Level - 05/16/2018 Adolescent Idiopathic Scoliosis - 05/07/2018 Comment: Perioral Dermatitis - 09/14/2016 PAST MEDICAL HISTORY 07/20/2010: PMH - PAST MEDICAL HISTORY OF Comment: normal color vision 07/2021: Torn ACL-left PAST SURGICAL HISTORY 08/2021: PAST SURGICAL HISTORY OF Comment: Repair torn ACL-left ALLERGIES Allergen Reactions Benadryl Allergy De* Mental Status Change hyperness, night terror Medications: metroNIDAZOLE 0.75 % cream Apply to affected area once daily. Drospirenone-Ethinyl Estradiol (REBECA, 28,) 3-0.02 mg per tablet Take 1 tablet by mouth once daily. spironolactone (ALDACTONE) 100 mg tablet Take 100 mg by mouth once daily. ISOtretinoin (CLARAVIS) 30 mg capsule Take 30 mg by mouth two times a day. (Patient not taking: Reported on 06/13/2024) FAMILY HISTORY Problem Relation Age of Onset Diabetes Maternal Grandmother Cancer Other paternal side Social History Social History Narrative Not on file Smoking Exposure: Do you spend a significant amount of time with anyone who smokes? No School: Entering College. No academic or school related concerns No behavioral concerns Any concerns regarding peer interactions? No Recreational Screen Time totaling more than 2 hours of screen time per day. Physical Activity: more than 1 hour of physical activity per day Fainting, dizziness, significant shortness of breath or chest pain with sports or exercise: No History of concussion in the last year: No Safety: 06/11/2023 Pediatric SDOH - Response to gun questions Are there any guns kept in or around your home or where your child spends time? No Reviewed seat belts, bike helmets, and smoke detectors Diet: -Diet is well balanced and appropriate for age -Fruits are eaten with most meals -Vegetables are not eaten routinely -Drinks water daily Elimination: no concerns, normal size and consistency Dental: dental care current Sleep: -no sleep concerns Vision: Wears contact lenses and Vision screening completed by eye doctor Hearing: No hearing concerns Growth: No growth concerns Gynecological history: LMP: 06/10/2024 Cycles are regular and last 4 days. Dysmenorrhea: none Heavy periods: no Screening tools reviewed and discussed with patient/[id number] and Social Determinants of Health. Please see Patient Entered Data. SDOH: Food Insecurity: Patient Declined (06/13/2024) Hunger Vital Sign Worried About Running Out of Food in the Last Year: Patient declined Ran Out of Food in the Last Year: Patient declined Financial Resource Strain: Patient Declined (06/13/2024) Overall Financial Resource Strain (CARDIA) Difficulty of Paying Living Expenses: Patient declined Transportation Needs: No Transportation Needs (06/13/2024) PRAPARE - Transportation Lack of Transportation (Medical): No Lack of Transportation (Non-Medical): No Housing Stability: Low Risk (06/13/2024) Housing Stability Vital Sign Unable to Pay for Housing in the Last Year: No Number of Places Lived in the Last Year: 1 Unstable Housing in the Last Year: No Discussed SDOH results with patient/family. SDOH needs identified: no concerns identified OBJECTIVE Physical Exam: BP 110/60 Pulse 88 Temp 36.2 ?C (97.2 ?F) (Temporal Artery) Wt 67.4 kg (148 lb 9.6 oz) LMP 06/10/2024 (Exact Date) HC 163.2 cm Blood pressure %denzel are not available for patients who are 18 years or older. Blood pressure %denzel are not available for patients who are 18 years or older. No height and weight on file for this encounter. Last BMI: Wt: 61.3 kg (135 lb 3.2 oz) (69%, Z= 0.48)* BMI: 22.94 kg/(m2) Last 4 Encounter Wt Readings: Date: Wt: 06/13/2024 67.4 kg (148 lb 9.6 oz) (81%, Z= 0.88)* 09/13/2023 61.3 kg (135 lb 3.2 oz) (69%, Z= 0.48)* 06/22/2023 60.4 kg (133 lb 3.2 oz) (67%, Z= 0.43)* 06/11/2023 61.6 kg (135 lb 12.8 oz) (70%, Z= 0.53)* Last 4 Encounter Ht Readings: Date: Ht: 06/11/2023 163.5 cm (5' 4.37) (52%, Z= 0.06)* 06/09/2022 163.6 cm (5' 4.41) (54%, Z= 0.11)* 06/08/2021 163.5 cm (5' 4.37) (56%, Z= 0.15)* 05/19/2020 162.6 cm (5' 4) (55%, Z= 0.13)* General: Well developed, No acute distress Head: normocephalic Eyes: conjunctivae/corneas clear Ears: TMs translucent bilaterally, normal landmarks noted Nose: no erythema or rhinorrhea Oropharynx: moist mucous membranes, no erythema or exudate Neck: supple, no adenopathy Spine: Back symmetric, no curvature. Resp: lungs clear to auscultation Heart: Normal rate, regular rhythm, no murmur Breast: deferred Abdom (more content not included)... [facility] 06-13-2024 History of Presen t illness Narrative WELL VISIT PEDIATRIC 18+ YRS OLD Hailee is a 18 year old who presents today for well exam. SUBJECTIVE CONCERNS: Vaccines HISTORY ACTIVE PROBLEM LIST Left Acl Tear - 06/09/2022 Comment: S/p surgical repair fall '21 Spondylolisthesis At L4-L5 Level - 05/16/2018 Adolescent Idiopathic Scoliosis - 05/07/2018 Comment: Perioral Dermatitis - 09/14/2016 PAST MEDICAL HISTORY 07/20/2010: PMH - PAST MEDICAL HISTORY OF Comment: normal color vision 07/2021: Torn ACL-left PAST SURGICAL HISTORY 08/2021: PAST SURGICAL HISTORY OF Comment: Repair torn ACL-left ALLERGIES Allergen Reactions Benadryl Allergy De* Mental Status Change hyperness, night terror Medications: metroNIDAZOLE 0.75 % cream Apply to affected area once daily. Drospirenone-Ethinyl Estradiol (REBECA, 28,) 3-0.02 mg per tablet Take 1 tablet by mouth once daily. spironolactone (ALDACTONE) 100 mg tablet Take 100 mg by mouth once daily. ISOtretinoin (CLARAVIS) 30 mg capsule Take 30 mg by mouth two times a day. (Patient not taking: Reported on 06/13/2024) FAMILY HISTORY Problem Relation Age of Onset Diabetes Maternal Grandmother Cancer Other paternal side Social History Social History Narrative Not on file Smoking Exposure: Do you spend a significant amount of time with anyone who smokes? No School: Entering College. No academic or school related concerns No behavioral concerns Any concerns regarding peer interactions? No Recreational Screen Time totaling more than 2 hours of screen time per day. Physical Activity: more than 1 hour of physical activity per day Fainting, dizziness, significant shortness of breath or chest pain with sports or exercise: No History of concussion in the last year: No Safety: 06/11/2023 Pediatric SDOH - Response to gun questions Are there any guns kept in or around your home or where your child spends time? No Reviewed seat belts, bike helmets, and smoke detectors Diet: -Diet is well balanced and appropriate for age -Fruits are eaten with most meals -Vegetables are not eaten routinely -Drinks water daily Elimination: no concerns, normal size and consistency Dental: dental care current Sleep: -no sleep concerns Vision: Wears contact lenses and Vision screening completed by eye doctor Hearing: No hearing concerns Growth: No growth concerns Gynecological history: LMP: 06/10/2024 Cycles are regular and last 4 days. Dysmenorrhea: none Heavy periods: no Screening tools reviewed and discussed with patient/[id number]-[id number] and Social Determinants of Health. Please see Patient Entered Data. SDOH: Food Insecurity: Patient Declined (06/13/2024) Hunger Vital Sign Worried About Running Out of Food in the Last Year: Patient declined Ran Out of Food in the Last Year: Patient declined Financial Resource Strain: Patient Declined (06/13/2024) Overall Financial Resource Strain (CARDIA) Difficulty of Paying Living Expenses: Patient declined Transportation Needs: No Transportation Needs (06/13/2024) PRAPARE - Transportation Lack of Transportation (Medical): No Lack of Transportation (Non-Medical): No Housing Stability: Low Risk (06/13/2024) Housing Stability Vital Sign Unable to Pay for Housing in the Last Year: No Number of Places Lived in the Last Year: 1 Unstable Housing in the Last Year: No Discussed SDOH results with patient/family. SDOH needs identified: no concerns identified OBJECTIVE Physical Exam: BP 110/60 Pulse 88 Temp 36.2 C (97.2 F) (Temporal Artery) Wt 67.4 kg (148 lb 9.6 oz) LMP 06/10/2024 (Exact Date) HC 163.2 cm Blood pressure %denzel are not available for patients who are 18 years or older. Blood pressure %denzel are not available for patients who are 18 years or older. No height and weight on file for this encounter. Last BMI: Wt: 61.3 kg (135 lb 3.2 oz) (69%, Z= 0.48)* BMI: 22.94 kg/(m^2) Last 4 Encounter Wt Readings: Date: Wt: 06/13/2024 67.4 kg (148 lb 9.6 oz) (81%, Z= 0.88)* 09/13/2023 61.3 kg (135 lb 3.2 oz) (69%, Z= 0.48)* 06/22/2023 60.4 kg (133 lb 3.2 oz) (67%, Z= 0.43)* 06/11/2023 61.6 kg (135 lb 12.8 oz) (70%, Z= 0.53)* Last 4 Encounter Ht Readings: Date: Ht: 06/11/2023 163.5 cm (5' 4.37) (52%, Z= 0.06)* 06/09/2022 163.6 cm (5' 4.41) (54%, Z= 0.11)* 06/08/2021 163.5 cm (5' 4.37) (56%, Z= 0.15)* 05/19/2020 162.6 cm (5' 4) (55%, Z= 0.13)* General: Well developed, No acute distress Head: normocephalic Eyes: conjunctivae/corneas clear Ears: TMs translucent bilaterally, normal landmarks noted Nose: no erythema or rhinorrhea Oropharynx: moist mucous membranes, no erythema or exudate Neck: supple, no adenopathy Spine: Back symmetric, no curvature. Resp: lungs clear to auscultation Heart: Normal rate, regular rhythm, no murmur Breast: deferred Abdomen: Soft, nontender, nondistended, no palpable organomegaly or masses, normal bowel sounds Genitalia: deferred Extremities: Full ROM and no swelling, erythema or tenderness Neuro: No focal deficits or abnormal findings present Skin: no rashes ASSESSMENT & PLAN Encounter Diagnosis ICD-10-CM 1. Encounter for routine child health examination w/o abnormal findings Z00.129 Based on PHQ-9 Score: 0 and interview, presentation is not consistent with depression. Based on DONYA-7 Score: 0 and interview, no further action needed. - Discussed diet and safety. - Dental care discussed. - [employer] handout given (See Patient Instructions). - No immunizations were recommended to be given at this visit. - [facility] is Cleared for all sports without restriction. If conditions arise after the athlete has been cleared for participation the provider may rescind the medical eligibility. - Healthcare transition statement not discussed.. - Follow up in one year for routine physical. Renard Mccullough MD documented in this encounter [facility] 02-04-2024 Miscellaneous Notes Formattin g of this note is different from the original. The following approved medication requests have been transmitted electronically. Requested Prescriptions Signed Prescriptions Disp Refills metroNIDAZOLE 0.75 % cream 45 g 1 Sig: Apply to affected area once daily. Authorizing Provider: MICHAEL ROJO MD Reply sent from pharmacy indicates that prescribed medication is not part of formulary. Suggested alternatives are listed below: Azelaic Acid 15 % gel metroNIDAZOLE 0.75 % cream documented in this encounter [facility] 06-22-2023 History of Presen t illness Narrative Images from the original note were not included. Subjective HPI HPI Hailee Garcia is a 17 year old female who presents today for CC of st, congestion for 2 days, cough last week/improving Has tried otc medication for relief. Symptoms are worsened by nothing. Risk factors recent air travel, mother sick with similar symptoms. .Patient presents with: Mouth Sores: Bumps on back of tongue, sore throat x 2 days PAST MEDICAL HISTORY Diagnosis Date PMH - PAST MEDICAL HISTORY OF 07/20/2010 normal color vision Torn ACL-left 07/2021 PAST SURGICAL HISTORY Procedure Laterality Date PAST SURGICAL HISTORY OF 08/2021 Repair torn ACL-left ALLERGIES Benadryl Allergy Decongestant MEDICATIONS spironolactone (ALDACTONE) 100 mg tablet Take 100 mg by mouth once daily. clindamycin (CLEOCIN-T) 1 % gel Apply to affected area twice daily. Drospirenone-Ethinyl Estradiol (REBECA, 28,) 3-0.02 mg per tablet Take 1 tablet by mouth once daily. metroNIDAZOLE 1 % cream Apply to affected area once daily. Use at rash around mouth and near nostrils ARAZLO 0.045 % lotn (Patient not taking: Reported on 06/22/2023) FAMILY HISTORY Problem Relation Age of Onset Diabetes Maternal Grandmother Cancer Other paternal side Social History Tobacco Use Smoking status: Never Smokeless tobacco: Never Review of Systems Constitutional: Negative for fever. HENT: Positive for congestion and sore throat. Negative for ear pain and nosebleeds. Respiratory: Positive for cough. Negative for shortness of breath and wheezing. Musculoskeletal: Negative for neck pain. Skin: Negative for itching and rash. Objective Blood pressure 120/88, pulse 95, temperature 36.6 C (97.8 F), resp. rate 21, weight 60.4 kg (133 lb 3.2 oz), last menstrual period 05/17/2023, SpO2 99 %. Physical Exam Constitutional: General: She is not in acute distress. Appearance: She is not toxic-appearing or diaphoretic. HENT: Head: Normocephalic and atraumatic. Right Ear: Hearing, tympanic membrane, ear canal and external ear normal. Left Ear: Hearing, tympanic membrane, ear canal and external ear normal. Nose: Nose normal. Mouth/Throat: Pharynx: Uvula midline. No pharyngeal swelling, oropharyngeal exudate, posterior oropharyngeal erythema or uvula swelling. Eyes: General: Lids are normal. No scleral icterus. Right eye: No discharge. Left eye: No discharge. Conjunctiva/sclera: Conjunctivae normal. Pupils: Pupils are equal, round, and reactive to light. Neck: Trachea: Trachea normal. Cardiovascular: Rate and Rhythm: Normal rate and regular rhythm. Heart sounds: Normal heart sounds. Pulmonary: Effort: Pulmonary effort is normal. Breath sounds: Normal breath sounds. Abdominal: General: Abdomen is flat. Bowel sounds are normal. Palpations: Abdomen is soft. There is no hepatomegaly or splenomegaly. Tenderness: There is no abdominal tenderness. Musculoskeletal: Cervical back: Normal range of motion and neck supple. Lymphadenopathy: Cervical: Cervical adenopathy present. Right cervical: Superficial cervical adenopathy present. Left cervical: Superficial cervical adenopathy present. Skin: Findings: No rash. Neurological: Mental Status: She is alert and oriented to person, place, and time. ASSESSMENT/PLAN: 1. URI, acute - ICD9: 465.9, ICD10: J06.9 (primary diagnosis) - Discussed viral etiology and rationale for treatment. - Symptomatic treatment with prn analgesia - Supportive care with fluids and rest - Follow up in 3-5 days if symptoms persist or sooner if worsening of symptoms 2. Sore throat - ICD9: 462, ICD10: J02.9 Negative, viral, possibly [place] - STREP A MOLECULAR (POC) Subhash Stephens APRN.ADVERTISING SALES AGENT documented in this encounter [facility] 06-11-2023 History of Presen t illness Narrative WELL VISIT PEDIATRIC 14-17 YRS OLD Hailee is a 17 year old who presents today for well exam accompanied by her mother. SUBJECTIVE CONCERNS: no concerns HISTORY ACTIVE PROBLEM LIST Left Acl Tear - 06/09/2022 Comment: S/p surgical repair fall '21 Spondylolisthesis At L4-L5 Level - 05/16/2018 Adolescent Idiopathic Scoliosis - 05/07/2018 Comment: Perioral Dermatitis - 09/14/2016 PAST MEDICAL HISTORY Diagnosis Date PMH - PAST MEDICAL HISTORY OF 07/20/2010 normal color vision Torn ACL-left 07/2021 PAST SURGICAL HISTORY Procedure Laterality Date PAST SURGICAL HISTORY OF 08/2021 Repair torn ACL-left ALLERGIES Allergen Reactions Benadryl Allergy De* Mental Status Change hyperness, night terror Medications: spironolactone (ALDACTONE) 100 mg tablet Take 100 mg by mouth once daily. clindamycin (CLEOCIN-T) 1 % gel Apply to affected area twice daily. Drospirenone-Ethinyl Estradiol (REBECA, 28,) 3-0.02 mg per tablet Take 1 tablet by mouth once daily. ARAZLO 0.045 % lotn metroNIDAZOLE 1 % cream Apply to affected area once daily. Use at rash around mouth and near nostrils FAMILY HISTORY Problem Relation Age of Onset Diabetes Maternal Grandmother Cancer Other paternal side Social History Social History Narrative Not on file Smoking Exposure: Does your child spend a significant amount of time in the care of anyone who smokes? No School: Entering 12th grade. No academic or school related concerns No behavioral concerns Any concerns regarding peer interactions? No Physical Activity: more than 1 hour of physical activity per day Recreational Screen Time totaling more than 2 hours of screen time per day. Fainting, dizziness, significant shortness of breath or chest pain with sports or exercise: No History of concussion in the last year: No Safety: Pediatric SDOH - Response to gun questions 06/11/2023 Are there any guns kept in or around your home or where your child spends time? No Reviewed seat belts, bike helmets, and smoke detectors Diet: -Diet is not well balanced and appropriate for age -Fruits and veggies are not eaten routinely -Drinks water daily -Regularly eats meals with family Elimination: no concerns, normal size and consistency Dental: dental care current Sleep: -no sleep concerns Yes, cell phone turned off before bedtime- Yes Vision: No vision concerns Hearing: No hearing concerns Growth: No growth concerns Gynecological history: LMP: 05/17/23 Cycles are regular and last 3-4 days. Dysmenorrhea: none Heavy periods: no Substance use: none Sexual History: Attraction: male Sexually Active: No Body image: satisfactory Screening tools reviewed and discussed with patient/[id number] and Social Determinants of Health. Please see Patient Entered Data. SDOH: Food Insecurity: No Food Insecurity (06/11/2023) Hunger Vital Sign Worried About Running Out of Food in the Last Year: Never true Ran Out of Food in the Last Year: Never true Financial Resource Strain: Low Risk (06/11/2023) Overall Financial Resource Strain (CARDIA) Difficulty of Paying Living Expenses: Not very hard Transportation Needs: No Transportation Needs (06/11/2023) PRAPARE - Transportation Lack of Transportation (Medical): No Lack of Transportation (Non-Medical): No Housing Stability: Low Risk (06/11/2023) Housing Stability Vital Sign Unable to Pay for Housing in the Last Year: No Number of Places Lived in the Last Year: 1 Unstable Housing in the Last Year: No Discussed SDOH results with patient/family. SDOH needs identified: no concerns identified OBJECTIVE Physical Exam: BP 118/70 Pulse 96 Temp 37.1 C (98.7 F) (Temporal) Resp 20 Ht 163.5 cm (5' 4.37) Wt 61.6 kg (135 lb 12.8 oz) LMP 05/17/2023 BMI 23.04 kg/m Blood pressure %denzel are 77 % systolic and 71 % diastolic based on the 2017 AAP Clinical Practice Guideline. This reading is in the normal blood pressure range. 69 %ile (Z= 0.50) based on CDC (Girls, 2-20 Years) BMI-for-age based on BMI available as of 06/11/2023. Last BMI: Wt: 61 kg (134 lb 6.4 oz) (69 %, Z= 0.49)* BMI: 22.78 kg/(m^2) Last 4 Encounter Wt Readings: Date: Wt: 05/02/2023 61 kg (134 lb 6.4 oz) (69 %, Z= 0.49)* 06/09/2022 60.8 kg (134 lb) (71 %, Z= 0.56)* 05/30/2022 61.9 kg (136 lb 8 oz) (74 %, Z= 0.65)* 06/08/2021 59.2 kg (130 lb 8 oz) (70 %, Z= 0.53)* Last 4 Encounter Ht Readings: Date: Ht: 06/09/2022 163.6 cm (5' 4.41) (54 %, Z= 0.11)* 06/08/2021 163.5 cm (5' 4.37) (56 %, Z= 0.15)* 05/19/2020 162.6 cm (5' 4) (55 %, Z= 0.13)* 11/20/2019 165.9 cm (5' 5.32) (77 %, Z= 0.74)* General: Well developed, No acute distress Head: normocephalic Eyes: conjunctivae/corneas clear Ears: normal external ear and canal, tympanic membranes with normal landmarks Nose: no erythema or rhinorrhea Oropharynx: moist mucous membranes, no erythema or exudate Neck: supple, no adenopathy Spine: Back symmetric, no curvature Resp: lungs clear to auscultation Heart: RRR, normal S1 and S2. , No murmurs Breast: deferred Abdomen: Soft, nontender, nondistended, no palpable organomegaly or masses, normal bowel sounds Genitalia: deferred Extremities: Full ROM and no swelling, erythema or tenderness Neuro: No focal deficits or abnormal findings present Skin: no rashes ASSESSMENT & PLAN Well 17yo 69 %ile (Z= 0.50) based on CDC (Girls, 2-20 Years) BMI-for-age based on BMI available as of 06/11/2023. Hailee is healthy range (BMI 5th% - 84th%): -To maintain a healthy weight, discussed limiting screen time to less than 2 hours per day, physical activity for at least one hour per day, 5 servings of fruits and vegetables per day, 3 meals per day, family meals ar home and no sugar containing beverages Based on PHQ-A Score: 0 (recommended cut off score is 11) and interview, presentation is not consistent with depression - Adolescent anticipatory guidance discussed. - Discussed diet and safety. - Dental care discussed. - [employer] System[employer] handout given (See Patient Instructions). - No immunizations were recommended to be given at this visit. - Follow up in one year for routine physical. Renard Mccullough MD documented in this encounter [facility] 05-02-2023 Instructions Nyasia Castaneda APRN.ADVERTISING SALES AGENT - 05/02/2023 3:43 PM EDT Oral Contraceptives: The Pill Beginning the Pill Pills come in either a 21 day pack or a 28 day pack. With the 21 day pack you will take one pill for 21 days then no pill for 7 days, during which time you will have what is known as withdrawal bleeding. The 28 day pack allows you to take a pill every day of the cycle with no interruptions. The first 21 pills are the pills with the active ingredients and the last 7 are the nonmedical pills (placebo) or they may contain iron. There will be bleeding during the week you are taking the nonmedical pills. The advantage to the 28 day pack is that you don t have to keep track of when you stopped the pill. There are a group of 28 day pills that contain 24 active pills and only 4 placebo pills. These are formulated to give you a rope tow operator period. Unless otherwise instructed, you should start your pills the Sunday following your first day of bleeding with your next period (if your period starts on a Sunday, you should start pills the same day) Read your information packet that comes with the pills. Pill Benefits The pill is the most popular method of reversible control being used today. Millions of women rely on oral contraceptives as their control method. It is important to have an examination by your physician to determine if the pill is safe for you. There are several advantages associated with the pill: it is 97-98% effective when used correctly; may improve acne; periods are more regular and less painful; there is less iron deficiency anemia in pill users. shelter use is associated with a decreased incidence of ovarian and uterine cancer. There is also no evidence that the pill increases the incidence of any cancer. How Oral Contraceptives Work Oral contraceptives come in two varieties. One is the combination pill which contains both estrogen and progesterone. Combination pills are considered 98-99% effective in preventing . This pill comes in either monophasic, which delivers the same amount of estrogen and progesterone throughout the cycle; and triphasic, which try tries to mimic the normal hormone cycle by changing the levels of the hormones in the pills during the month. There is no real advantage to taking the one over the other. The other type of pill only contains progesterone. It is best used for women who can t take estrogen. This type of pill is slightly less effective than the combination pill in preventing . It is VERY important to take the progesterone only pill at the same time every day. Oral contraceptives prevent ovulation (release of an egg from the ovary) by suppressing the pituitary gland s action. The pill does NOT prevent sexually transmitted disease. Obtaining a Prescription It is important to see your doctor before starting oral contraceptives so that you can have a full medical history taken and a physical examination given. Certain medical conditions may make the pill inappropriate for you, therefore it is very important to be honest and as complete as possible with the information you share with your doctor. The types of predisposing factors which would make the pill a poor choice of control would include: History of blood clots Stroke Serious liver disease or impaired liver function Unexplained vaginal bleeding or Cancer of the reproductive system Active gall bladder disease Hypertension Possible Side Effects It can take up to three months for your body to become adjusted to the pill. The more common side effects experienced at this time are: breakthrough spotting or bleeding, which is bleeding at any other time other than when you should be having a period; nausea or vomiting; breast tenderness; and mild fluid retention. There is no half-way weight gain with the use of the pill. Breakthrough bleeding is the most common complaint of new pill users. There is no way to predict who will have it and there is no way of preventing it. Breakthrough bleeding usually subsides on its own with no further treatment after the first three months of taking the pill. If these symptoms continue to occur after the first three months you should check with your physician to see if there is any physical cause and possibly change to another control pill. Problems: Missed 1 pill: Take 2 pills the next day. Missed 2 pills: Take 2 pills the next day and 2 pills the following day. Also use another form of control (condoms) along with the pill for the rest of the month. Missed 3 or more pills: You have two choices. You can take two pills each day until you are on schedule, plus use an additional form of control along with the pill for the rest of the month. Or you can stop the pill and start a completely new pack of pills the next Sunday. You must use another form of control with the pill for at least the first two weeks of the new pack. You re ill and you have been vomiting or have diarrhea: You must use another form of control with the pill since the pill may not be fully absorbed during your illness. Continue to use the added control until the end of the cycle. Desire to become : Stop using the pill for one month before trying to become . Taking other medications: The control pill is less effective when you take the antibiotic Rifampin, epilepsy (seizure) drugs such as phenytoin, carbamazepine, phenobarbital, topiramate and some medications for HIV. Let your doctor know if you start taking any of these medications while on the pill. Symptoms to Notify Your Doctor with Immediately: Pain in your chest or legs Continuous blurred vision Severe headaches Slurred speech Tingling or weakness on one side of your body Shortness of breath Swelling of one leg Refills of Control Pills You need to see a doctor every year for a refill of your prescription. This is necessary in order that your health can be monitored closely while you are taking control pills. If your prescription should before your next scheduled appointment you can usually get a one month extension from your doctors office if you call during regular business hours about one week before you need to start the new package of pills. This allows the physician to refer to your chart for necessary health information. documented in this encounter [facility] 05-02-2023 History of Presen t illness Narrative CONTRACEPTION Hailee Garcia is a 17 year old No obstetric history on file. who presents today for contraception for treatment of acne. She is under care of dermatology. Accompanied by mother. Patient's last menstrual period was 04/06/2023.. HPI: Dysmenorrhea No Heavy menses No Irregular menses No SUBJECTIVE Sexually active: Never Smoking No Method of control: none Methods tried previously: none Patient currently interested in: oral contraceptives Relevant Past Medical History: Denies family history of clotting disorders. Denies personal history of DVT, CVD, hypertension or migraine with aura. Non-smoker. OB History No obstetric history on file. PAST MEDICAL HISTORY Diagnosis Date PMH - PAST MEDICAL HISTORY OF 07/20/2010 normal color vision Torn ACL-left 07/2021 PAST SURGICAL HISTORY Procedure Laterality Date PAST SURGICAL HISTORY OF 08/2021 Repair torn ACL-left FAMILY HISTORY Problem Relation Age of Onset Diabetes Maternal Grandmother Cancer Other paternal side SOCIAL HISTORY Social History Tobacco Use Smoking status: Never Smokeless tobacco: Never PAST SURGICAL HISTORY Procedure Laterality Date PAST SURGICAL HISTORY OF 08/2021 Repair torn ACL-left Current Outpatient Medications Medication Sig spironolactone (ALDACTONE) 100 mg tablet Take 100 mg by mouth once daily. clindamycin (CLEOCIN-T) 1 % gel Apply to affected area twice daily. ARAZLO 0.045 % lotn metroNIDAZOLE 1 % cream Apply to affected area once daily. Use at rash around mouth and near nostrils CETIRIZINE HCL (ZYRTEC ORAL) Take by mouth once daily as needed. (Patient not taking: Reported on 05/30/2022 ) No current facility-administered medications for this visit. Allergies As of Date: 05/02/2023 Allergen Noted Reaction BENADRYL ALLERGY DECONGESTANT 09/27/2015 Mental Status Change Fully Assessed 05/02/2023 OBJECTIVE: General Appearance: Well appearing, alert, in no acute distress, well-hydrated, well nourished. Skin: facial acne Chest: normal inspiratory effort Abdomen: soft and non-tender ASSESSMENT/PLAN: 1. Acne vulgaris - ICD9: 706.1, ICD10: L70.0 (primary diagnosis) - DROSPIRENONE 3 MG-ETHINYL ESTRADIOL 0.02 MG TABLET 2. Encounter for BCP ( control pills) initial prescription - ICD9: V25.01, ICD10: Z30.011 - RX for Rebeca given today. - discussed with patient on how to take OCP's. Given written information. - counseled on benefits, risks and possible severe side effects of OCP's. - discussed need to use Condoms to help to prevent STD's including HIV etc. - DROSPIRENONE 3 MG-ETHINYL ESTRADIOL 0.02 MG TABLET OCP follow-up 3 months Nyasia Castaneda APRN.CNP Medical Decision Making: Problems: Low: Stable chronic illness Risk: Moderate: Drug management and Moderate risk from testing/treatment Medical Decision Making Level: 3 - Low documented in this encounter [facility] 07-25-2022 Miscellaneous Notes Formattin g of this note might be different from the original. Mother notified and voiced understanding of all below as directed by Dr. Mccullough. Scheduling for [facility] derm offered, but mother states that she will call back to check on scheduling as she is currently at work. Contact information provided for all derm providers mentioned below. Lianet Stroud RN Please assist with derm referral Renard Mccullough MD documented in this encounter [facility] 06-09-2022 History of Presen t illness Narrative WELL VISIT PEDIATRIC FEMALE 14-17 YRS OLD SERVICE DATE: 06/09/2022 Hailee is a 16 year old female who presents today for well exam accompanied by her mother. SUBJECTIVE CONCERNS: check face, check right side of right foot, started Proactiv-started after rash started HISTORY ACTIVE PROBLEM LIST Acute Right-Sided Low Back Pain With Right-Sided Sciatica - 06/26/2018 Spondylolisthesis At L4-L5 Level - 05/16/2018 Adolescent Idiopathic Scoliosis - 05/07/2018 Comment: Needs repeat xray 10/29 Perioral Dermatitis - 09/14/2016 PAST MEDICAL HISTORY Diagnosis Date NEGATIVE MEDICAL HISTORY PMH - PAST MEDICAL HISTORY OF 07/20/10 normal color vision PAST SURGICAL HISTORY Procedure Laterality Date NONE ALLERGIES Allergen Reactions Benadryl Allergy De* Mental Status Change hyperness, night terror Medications: CETIRIZINE HCL (ZYRTEC ORAL) Take by mouth once daily as needed. FAMILY HISTORY Problem Relation Age of Onset Diabetes Maternal Grandmother Cancer Other paternal side Social History Social History Narrative Not on file Smoking Exposure: Does your child spend a significant amount of time in the care of anyone who smokes? No School: Grade: 10th; grades A. Physical Activity: more than 1 hour of physical activity per day Screen Time totaling more than 2 hours of screen time per day. Safety: Reviewed seat belts, bike helmets and smoke detectors Diet: -Eats 3 meals per day and 1 snacks per day -Typical beverages include water -Fruits are eaten as snacks Elimination: no concerns, normal size and consistency Dental: dental care current Sleep: -no sleep concerns Yes, cell phone turned off before bedtime- Yes Gynecological history: LMP: 06/02/22 Cycles are regular and last 4-5 days. Dysmenorrhea: none Heavy periods: yes Screening tools reviewed and discussed with patient/[id number] and Social Determinants of Health. Please see Patient Entered Data. REVIEW OF SYSTEMS GENERAL: No fevers EYES: No vision concerns ENT: No hearing concerns RESPIRATORY: Negative for cough, wheezing or respiratory distress CARDIOVASCULAR: Negative for chest pain, syncope, lightheadness or heart racing SKIN: Positive for rash: was on steroid-face ENDOCRINE: No growth concerns OBJECTIVE Physical Exam: BP 116/76 Pulse 104 Temp 36.8 C (98.2 F) (Temporal) Resp 20 Ht 163.6 cm (5' 4.41) Wt 60.8 kg (134 lb) LMP 06/02/2022 BMI 22.71 kg/m Blood pressure percentiles are 74 % systolic and 89 % diastolic based on the 2017 AAP Clinical Practice Guideline. This reading is in the normal blood pressure range. 70 %ile (Z= 0.52) based on CDC (Girls, 2-20 Years) BMI-for-age based on BMI available as of 06/09/2022. Last BMI: Wt: 61.9 kg (136 lb 8 oz) (74 %, Z= 0.65)* BMI: 23.16 kg/(m^2) Last 4 Encounter Wt Readings: Date: Wt: 05/30/2022 61.9 kg (136 lb 8 oz) (74 %, Z= 0.65)* 06/08/2021 59.2 kg (130 lb 8 oz) (70 %, Z= 0.53)* 03/25/2021 59.9 kg (132 lb) (73 %, Z= 0.61)* 05/19/2020 58.3 kg (128 lb 8 oz) (73 %, Z= 0.61)* Last 4 Encounter Ht Readings: Date: Ht: 06/08/2021 163.5 cm (5' 4.37) (56 %, Z= 0.15)* 05/19/2020 162.6 cm (5' 4) (55 %, Z= 0.13)* 11/20/2019 165.9 cm (5' 5.32) (77 %, Z= 0.74)* 05/07/2019 164.4 cm (5' 4.72) (75 %, Z= 0.66)* General: Well developed, No acute distress Head: normocephalic Eyes: conjunctivae/corneas clear Ears: normal external ear and canal, tympanic membranes with normal landmarks Nose: no erythema or rhinorrhea Oropharynx: moist mucous membranes, no erythema or exudate Neck: Supple, no adenopathy; thyroid symmetric, normal size, no bruits Spine: Back symmetric, no curvature Resp: lungs clear to auscultation Heart: RRR, normal S1 and S2. , No murmurs Abdomen: Soft, nontender, nondistended, no palpable organomegaly or masses, normal bowel sounds Extremities: No clubbing, cyanosis, or edema., No deformities or skin discoloration. Good capillary refill. Full range of motion. Neuro: No focal deficits or abnormal findings present Skin: no rashes, lesions or jaundice ASSESSMENT & PLAN Well 16yo 70 %ile (Z= 0.52) based on CDC (Girls, 2-20 Years) BMI-for-age based on BMI available as of 06/09/2022. Hailee is normal weight (BMI 5th% - 84th%): -To maintain a healthy weight, discussed limiting screen time to less than 2 hours per day, physical activity for at least one hour per day, 5 servings of fruits and vegetables per day, 3 meals per day, family meals ar home and no sugar containing beverages Based on PHQ-A Score: (recommended cut off score is 11) and interview, presentation is not consistent with depression - Adolescent anticipatory guidance discussed. - Discussed diet and safety. - Dental care discussed. - [facility] handout given (See Patient Instructions). - Parent/guardian was counseled [id number] by myself (the billing provider) for the following immunizations and vaccine components, including side effects: Menactra. Parent/guardian consents for immunization and understands risks and benefits. A VIS sheet on each immunization was given to the parent/guardian. - Follow up in one year for routine physical. SIGNATURE: Renard Mccullough MD PATIENT NAME: Hailee Garcia DATE: June 09, 2022 TIME: 8:29 AM documented in this encounter [facility] 05-30-2022 History of Presen t illness Narrative PEDIATRIC SICK VISIT SERVICE DATE: 05/30/2022 SUBJECTIVE: Hailee Garcia is a 16 year old female accompanied by father for evaluation of facial rash onset Sunday. Patient describes rash as small, red, rough bumps. Reports itchiness and burning. Feels face seems puffier than normal. States rash started on her forehead and has gradually spread down her face. Now appears to be progressing to her neck. Patient states she was at a volleyball tournament at [place] over the weekend when the rash was first noticed. Reports sweating a lot which seemed to have worsened the rash. The patients reports no new exposures, no recent contact with unusual or new material, no recent changes in detergents, soap, skin care products, lotions, or shampoo and no other family members or close contacts with the same rash. Denies sick contacts. Denies any additional symptoms (I.e. no sore throat, cough, congestion, rhinorrhea, headache, and fever). Patient reports she did start using Proactive Sunday; however, the rash was already there. History was obtained from: father and patient HISTORY: ACTIVE PROBLEM LIST Perioral Dermatitis Adolescent Idiopathic Scoliosis Spondylolisthesis At L4-L5 Level Acute Right-Sided Low Back Pain With Right-Sided Sciatica PAST MEDICAL HISTORY Diagnosis Date NEGATIVE MEDICAL HISTORY PMH - PAST MEDICAL HISTORY OF 07/20/10 normal color vision PAST SURGICAL HISTORY Procedure Laterality Date NONE Allergies: ALLERGIES Allergen Reactions Benadryl Allergy De* Mental Status Change hyperness, night terror Medications: predniSONE (DELTASONE) 20 mg tablet Take 3 tablets by mouth once daily for 5 days. CETIRIZINE HCL (ZYRTEC ORAL) Take by mouth once daily as needed. REVIEW OF SYSTEMS: As above, otherwise negative OBJECTIVE: Pulse 76 Temp 36.9 C (98.5 F) (Temporal) Resp 16 Wt 61.9 kg (136 lb 8 oz) LMP 06/01/2021 General: alert and active in no apparent distress, cooperative, pleasant Eyes: conjunctiva clear, EOMI Nose: no erythema or exudate OP: moist without lesions, posterior pharynx moderately erythematous, no exudates, no swelling lips/tongue Neck: supple, no adenopathy Lungs: clear to auscultation bilaterally, good air exchange, no retractions, no wheezes, rales, or rhonchi CVS: Normal rate, regular rhythm, no murmur Skin: fine red papular [id number] rash of the face and neck Strep A Molecular: Negative ASSESSMENT/PLAN: Encounter Diagnosis ICD-10-CM 1. Rash and nonspecific skin eruption R21 - Prednisone 60 mg daily x 5 days - Zyrtec 10 mg daily as needed for itching - Symptomatic care reviewed - All questions answered - Instructed to provide patient update in 2 - 3 days. Follow up sooner for worsening symptoms or any concerns Medical Decision Making: Problems: Moderate: New problem with uncertain prognosis Risk: Moderate: Moderate risk from testing/treatment and Drug management Medical Decision Making Level: 4 - Moderate SIGNATURE: Kirsten Ely PA-C PATIENT NAME: Hailee Garcia DATE: May 30, 2022 TIME: 4:49 PM documented in this encounter [facility] 06-26-2018 History of Past i llness Narrative Problem Noted Date Resolved Date Acute right-sided low back pain with right-sided sciatica 06/26/2018 06/09/2022 documented as of this encounter (statuses as of 06/09/2022) [facility] History of Past illness Narrative* Problem Noted Date Resolved Date Acute right-sided low back pain with right-sided sciatica 06/26/2018 06/09/2022 documented as of this encounter (statuses as of 07/25/2022) [facility] of Past illness Narrative* Problem Noted Date Resolved Date Acute right-sided low back pain with right-sided sciatica 06/26/2018 06/09/2022 documented as of this encounter (statuses as of 08/04/2022) [facility] of Past illness Narrative* Problem Noted Date Resolved Date Acute right-sided low back pain with right-sided sciatica 06/26/2018 06/09/2022 documented as of this encounter (statuses as of 05/03/2023) [facility] of Past illness Narrative* Problem Noted Date Diagnosed Date Resolved Date Acute right-sided low back p ain with right-sided sciatica 06/26/2018 06/09/2022 documented as of this encounter (statuses as of 06/12/2023) [facility] History of Past illness Narrative* Problem Noted Date Diagnosed Date Resolved Date Acute right-sided low back p ain with right-sided sciatica 06/26/2018 06/09/2022 documented as of this encounter (statuses as of 06/23/2023) [facility] of Past illness Narrative* Problem Noted Date Diagnosed Date Resolved Date Acute right-sided low back p ain with right-sided sciatica 06/26/2018 06/09/2022 documented as of this encounter (statuses as of 02/05/2024) [facility] Diagnosis Rash and nonspecific skin eruption- Primary Rash and other nonspecific skin eruption documented in this encounter [facility]* Diagnosis Encounter for routine child health examination without abnormal findings- Primary Routine infant or child health check Encounter for immunization Need for other specified prophylactic vaccination against single bacterial disease Rupture of anterior cruciate ligament of left knee, subsequent encounter [facility] Diagnosis Sensitive skin- Primary Disturbance of skin sensation [facility] Diagnosis Perioral dermatitis Rosacea [facility] Diagnosis Acne vulgaris- Primary Other acne Encounter for BCP ( control pills) initial prescription General counseling for prescription of oral contraceptives [facility] Diagnosis Encounter for routine child health examination without abnormal findings- Primary Routine or child health check [facility] Diagnosis URI, acute- Primary Acute upper respiratory infections of unspecified site Sore throat Acute pharyngitis documented in this encounter [facility] noteNo assessment information availableWZanesville [facility] Work Phone: Evaluation note* Diagnosis Perioral dermatitis Rosacea documented in this encounter [facility]* Diagnosis Encounter for routine child health examination w/o abnormal findings- Primary Routine or child health check Perioral dermatitis Rosacea documented in this encounter [facility]* Diagnosis Acne vulgaris Other acne Encounter for BCP ( control pills) initial prescription General counseling for prescription of oral contraceptives [facility] Diagnosis Acne vulgaris Other acne Encounter for BCP ( control pills) initial prescription General counseling for prescription of oral contraceptives [facility] Diagnosis Encounter for surveillance of contraceptive pills- Primary Surveillance of previously prescribed contraceptive pill Acne vulgaris Other acne documented in this encounter [facility] Reason for Referral Specialty Diagnoses / Procedures Referred By Darnell weaver Referred To Contact Dermatology Diagnoses Sensitive skin Procedures CONSULT TO DERMATOLOGY Renard Mccullough MD [address] [place] [address] Referral ID Status Reason Start Date Expiration Date Visits Requested Visits Authorized [id number] Ref Not Required PCP Requested Referral 07/25/2022 07/25/2023 1 1 Summary Purpose Family History No Family History Records FoundNo Family History Records Found Advance Directives No Advanced Directives Records FoundNo Advanced Directives Records Found Additional Source Comments Source Comments (unrecognize d section and content) In the event this informatio n is protected by the Federal Confidentiality of Alcohol and Drug Abuse Patient Records regulations: The Federal rules restrict any use of the information to criminally investigate or prosecute any alcohol or drug abuse patient.[facility] the event this information is protected by the Federal Confidentiality of Alcohol and Drug Abuse Patient Records regulations: The Federal rules restrict any use of the information to criminally investigate or prosecute any alcohol or drug abuse patient.[facility] the event this information is protected by the Federal Confidentiality of Alcohol and Drug Abuse Patient Records regulations: The Federal rules restrict any use of the information to criminally investigate or prosecute any alcohol or drug abuse patient.[facility] the event this information is protected by the Federal Confidentiality of Alcohol and Drug Abuse Patient Records regulations: The Federal rules restrict any use of the information to criminally investigate or prosecute any alcohol or drug abuse patient.[facility] the event this information is protected by the Federal Confidentiality of Alcohol and Drug Abuse Patient Records regulations: The Federal rules restrict any use of the information to criminally investigate or prosecute any alcohol or drug abuse patient.[facility] the event this information is protected by the Federal Confidentiality of Alcohol and Drug Abuse Patient Records regulations: The Federal rules restrict any use of the information to criminally investigate or prosecute any alcohol or drug abuse patient.[facility] the event this information is protected by the Federal Confidentiality of Alcohol and Drug Abuse Patient Records regulations: The Federal rules restrict any use of the information to criminally investigate or prosecute any alcohol or drug abuse patient.[facility] the event this information is protected by the Federal Confidentiality of Alcohol and Drug Abuse Patient Records regulations: The Federal rules restrict any use of the information to criminally investigate or prosecute any alcohol or drug abuse patient.[facility] the event this information is protected by the Federal Confidentiality of Alcohol and Drug Abuse Patient Records regulations: The Federal rules restrict any use of the information to criminally investigate or prosecute any alcohol or drug abuse patient.[facility] Center[facility] the event this information is protected by the Federal Confidentiality of Alcohol and Drug Abuse Patient Records regulations: The Federal rules restrict any use of the information to criminally investigate or prosecute any alcohol or drug abuse patient.[facility] Center[facility] the event this information is protected by the Federal Confidentiality of Alcohol and Drug Abuse Patient Records regulations: The Federal rules restrict any use of the information to criminally investigate or prosecute any alcohol or drug abuse patient.[facility] Center[facility] the event this information is protected by the Federal Confidentiality of Alcohol and Drug Abuse Patient Records regulations: The Federal rules restrict any use of the information to criminally investigate or prosecute any alcohol or drug abuse patient.[facility] Reason for Visit (unrecogniz ed section and content) Reason Comments Rash x5 days hauser/itchin g Reason Comments Well Child 16 year old Reason Comments Refill Request Reason Comments Contraception Reason Comments Well Child 17 year old Reason Comments Mouth Sores Bumps on back of hung duran, sore throat x 2 days Reason Comments Med Change Request Reason Comments Well Child Reason Onset Date Comments Refill Request 11/20/2024 Reason Comments Contraception Care Teams (unrecognized sec tion and content) Assistant Manager Airside Operations Relationship Specialty Start Date End Date Renard Mccullough MD [address] [place] [address] PCP - General Pediatrics 03/05/17 Assistant Manager Airside Operations Relationship Specialty Start Date End Date Renard Mccullough MD [address] [place] [address] PCP - General Pediatrics 03/05/17 Assistant Manager Airside Operations Relationship Specialty Start Date End Date Renard Mccullough MD [address] [place] [address] PCP - General Pediatrics 03/05/17 Assistant Manager Airside Operations Relationship Specialty Start Date End Date Renard Mccullough MD [address] [place] [address] PCP - General Pediatrics 03/05/17 Assistant Manager Airside Operations Relationship Specialty Start Date End Date Renard Mccullough MD [address] [place] [address] PCP - General Pediatrics 03/05/17 Assistant Manager Airside Operations Relationship Specialty Start Date End Date Renard Mccullough MD [address] [place] [address] PCP - General Pediatrics 03/05/17 Assistant Manager Airside Operations Relationship Specialty Start Date End Date Renard Mccullough MD [address] [place] [address] PCP - General Pediatrics 03/05/17 Team Status: Active Member Role Status Dates Dr. Renard Mccullough MD Primary Care Provider Active Team Status: Inactive Member Role Status Dates Dr. Renard Mccullough MD Primary Care Provider Active Dr. Jax Matthews MD Attending Provider, [facility] Active Assistant Manager Airside Operations Relationship Specialty Start Date End Date Renard Mccullough MD [address] [place] [address] PCP - General Pediatrics 03/05/17 Assistant Manager Airside Operations Relationship Specialty Start Date End Date Renard Mccullough MD [address] [place] [address] PCP - General Pediatrics 03/05/17 Goals (unrecognized section and content) Goals may be documented in a n alternate sectionGoals may be documented in an alternate section INFORMATION SOURCE (unrecogn ized section and content) DATE CREATED AUTHOR 05/29/2024 [facility] DATE CREATED AUTHOR AUTHOR'S RANDALL ATLILLIAM 11/28/2024 [facility] FOR RECORDS PERTAINING TO PATIENTS WHO ARE OR HAVE BEEN ENROLLED IN A CHEMICAL DEPENDENCY/SUBSTANCEABUSE PROGRAM, SOME INFORMATION MAY BE OMITTED. This clinical summary was aggregated from multiple sources. Caution should be exercised in using it in the provision of clinical care. This summary normalizes information from multiple sources, and as a consequence, information in this document may materially change the coding, format and clinical context of patient data. In addition, data may be omitted in some cases. CLINICAL DECISIONS SHOULD BE BASED ON THE PRIMARY CLINICAL RECORDS. [facility]. provides no warranty or guarantee of the accuracy or completeness of information in this document.
[2025-10-23 12:37] LABS: Hematocrit 47.8 % (37-47); Hemoglobin 16.8 g/dL (12.0-15.0); Immature Granulocytes Count 0.050 X10^3/uL (0.0-0.0); Mean Corp Hgb Conc 35.1 g/dL (32-36); Mean Corpuscular Volume 86.3 fL (81-99); Mean Platelet Vol. 10.0 fl (6.2-12.0); NRBC Flagged by Analyzer 0 % (0-5); POSITIVE DIFFERENTIAL YES; Platelet Count 357 K/mm3 (150-450); RBC Distribution Width CV 12.4 % (11.6-14.6); RBC Distribution Width SD 38.8 fl (35.1-43.9); Red Blood Count 5.54 M/mm3 (4.2-5.4); White Blood Count 13.8 K/mm3 (4.4-11.0)
[2025-10-23 12:55] LABS: Internal QC Validated? YES +Cl - CLEAR BKGD; Pregnancy, Serum, hCG Quali. NEGATIVE Negative
[2025-10-23 13:02] LABS: AST(SGOT) 22 U/L (<=31); Alanine Aminotransfer ALT/SGPT 15 U/L (<=34); Albumin, Serum 4.6 g/dL (3.5-5.0); Alkaline Phosphatase 73 U/L (35-104); Anion Gap 14 (5-15); BUN 20 mg/dL (4-19); BUN/Creat Ratio 23.7 RATIO (10-20); Calcium,Total 9.8 mg/dL (7.6-11.0); Carbon Dioxide 21.5 mmol/L (21.0-32.0); Chloride 104 mmol/L (98-108); Estimated Creatinine Clearance 103.55 ml/min (50-250); Globulin 3.7 g/dL (2.2-4.2); Glucose 129 mg/dL (70-99); Lipase 26 U/L (13-75); Potassium 4.1 mmol/L (3.3-5.1)
[2025-10-23 14:02] VITALS: BP 129/59; PULSE 92; RESP 16; TEMP 36.7; O2SAT 100
--- NOTE | 2025-10-23 14:03 | CM.ED ---
Social Work Reason for visit: No PCP Patient verified that she does not currently have a PCP, but did state that she had been wanting to get established with a doctor. [facility] provider list along with Why Wait brochure was given to patient, patient appreciative of same. Trixie Marcos, GEOGRAPHICAL HISTORIAN, MARKETING COMMUNICATIONS SPECIALIST
== END 2025-10-23 14:06 | disposition home or self-care (01) ==
PROVIDERS: Emergency Provider Emergency Medicine; PCP Pediatrics; Visit Provider Emergency Medicine
DX: A08.4 Viral intestinal infection, unspecified (principal); E86.0 Dehydration; R11.2 Nausea with vomiting, unspecified; R19.7 Diarrhea, unspecified
CPT/HCPCS: 80053; 83690; 84703; 85025; 96361; 96374; 96375; 99284; J2405